=== PATIENT | female | born 1945 | race Caucasian/White ===

== ENCOUNTER 2022-08-06 22:16 | Emergency (ER) | payer MEDICARE, MEDICAID, SELFPAY ==
[2022-08-06 22:19] VITALS: BP 101/57; PULSE 62; RESP 16; TEMP 37; O2SAT 100; BMI 22.8
[2022-08-06 22:26] VITALS: BP 101/57; PULSE 62; O2SAT 100
--- NOTE | 2022-08-06 22:28 | XRR_ITS ---
PROCEDURE INFORMATION: Exam: XR Chest Exam date and time: 08/06/2022 10:35 PM Age: 76 years old Clinical indication: Other: Syncope TECHNIQUE: Imaging protocol: Radiologic exam of the chest. Views: 1 view. COMPARISON: No relevant prior studies available. FINDINGS: Lungs: The lungs are hypoinflated. There is mild bibasilar atelectasis versus infiltrates present. Pleural spaces: Unremarkable. No pleural effusion. No pneumothorax. Heart/Mediastinum: Unremarkable. No cardiomegaly. Bones/joints: Unremarkable. XR/XR chest 1V portable [id number] IMPRESSION: Hypoinflation with mild bibasilar atelectasis versus infiltrates. Correlate for infection.
--- NOTE | 2022-08-06 22:29 | ECG_ITS ---
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 Measurements Intervals [place] Rate: 58 P: 80 HI: 153 QRS: 19 QRSD: 90 T: 31 QT: 444 QTc: 437 Interpretive Statements SINUS BRADYCARDIA No previous ECG available for comparison Electronically Signed On 08-07-2022 7:08:28 CDT by Meg Ramirez M.D. [email or web address]/store/OM/[id number]
--- NOTE | 2022-08-06 22:30 | ED_ITS ---
HPI - Syncope General: Chief Complaint: Syncope Stated Complaint: syncope Time Seen by Provider: 08/06/22 22:18 Source: family and EMS Mode of arrival: EMS Limitations: altered mental status History of Present Illness: 76-year-old female who just moved in with her family from [place] due to dementia she does have severe dementia no history was really available from her. Per family member in the room states that they were barbecuing and she turned around and patient was gurgling and she tried to wake her and would not wake her up states she did 1-2 chest compressions and then she woke up immediately patient is currently awake and at her baseline she has no complaints at this time. Review of Systems General: Reports: ROS unobtainable due to mental status PFSH ED 2 PFSH: Medical History (Updated 08/07/22 @ 00:51 by Liza Gibson MD) Dementia Social History (Updated 08/06/22 @ 22:30 by Liza Gibson MD) Substance/Drug Use: unknown Physical Exam Const: COMMON NORMALS: alert; negative for patient oriented x3 ORIENTATION/CONSCIOUSNESS: Yes oriented to person HENMT: COMMON NORMALS: normocephalic and atraumatic HEAD & SCALP: normocephalic and atraumatic Eye: COMMON NORMALS: Equal, round and reactive pupils present and EOMs intact bilaterally PUPIL: Yes Equal, round and reactive pupils present Neck/C-Spine: COMMON NORMALS: full ROM and supple Chest: COMMONS NORMALS: normal inspection of the chest and normal palpation of entire chest wall Resp: COMMON NORMALS: normal respiratory effort, No retractions, No use of accessory muscles and clear to auscultation bilaterally AUSCULTATION: clear to auscultation bilaterally Cardio: COMMON NORMALS: regular rate, regular rhythm and No murmurs present (Cardio) RATE: regular rate RHYTHM: regular rhythm GI: COMMON NORMALS: Normal to inspection, nondistended, normoactive bowel sounds present, Soft to palpation, non-tender and no masses PALPATION: Yes Soft to palpation Extremity: COMMON NORMALS: normal to inspection and full ROM Neuro: COMMON NORMALS: moves all extremities and no focal motor deficits; negative for patient oriented x3 SENSORIUM/ORIENTATION: Yes alert and Yes oriented to person Psych: COMMON NORMALS: mental status grossly normal, Normal thought process present and cooperative THOUGHT PROCESS: Normal thought process present Skin: COMMON NORMALS: no rashes or lesions noted and no wounds GENERAL SKIN EXAM: no rashes or lesions noted Course Vital Signs: Vital signs: Vital Signs Temperature 98.6 F 08/06/22 22:19 Pulse Rate 61 08/06/22 23:01 Respiratory Rate 16 08/06/22 22:19 Blood Pressure 111/58 08/06/22 23:01 Pulse Oximetry 93 08/06/22 23:01 Oxygen Delivery Me thod Room Air 08/06/22 23:01 MDM - Syncope Medical Decision Making Patient presents here with a likely syncopal event she has no signs of any arrhythmias no signs of actually losing her pulses or stroke she is awake and alert heart rates been normal vitals here been normal blood work here is all been normal along with normal head CT she is stable for discharge she is to follow-up with PCP and return if worsening she understands agrees to plan. Medical Records I reviewed the patient's medical records. Lab Data I reviewed the patient's lab results. 08/06/22 21:27 08/06/22 21:27 Radiology Impressions Chest X-Ray 08/06/22 22:28 IMPRESSION: Hypoinflation with mild bibasilar atelectasis versus infiltrates. Correlate for infection. Head CT 08/06/22 22:42 IMPRESSION: No acute intracranial abnormality. Laboratory Results WBC 9.1 10^3/uL (4.0-10.0) 08/06/22 21: RBC 4.40 10^6/uL (4.1-5.3) 08/06/22: Hgb 13.1 g/dL (11.5-15.3) 08/06/22 21: Hct 41.7 % (37.0-47.0) 08/06/22 21: MCV 94.8 fl (81-99) 08/06/22 21: MCH 29.8 pg (28.0-34.0) 08/06/22 21: MCHC 31.4 g/dL (30.0-36.0) 08/06/22 21: RDW 12.9 % (12.1-15.1) 08/06/22: Plt Count 247 10^3/cmm (130-400) 08/06/22 21: MPV 11.3 fL (7.4-10.4) H 08/06/22 21: Neut % (Auto) 62.7 % 08/06/22 21: Lymph % (Auto) 28.1 % 08/06/22 21: [place] % (Auto) 8.0 % 08/06/22 21: Eos % (Auto) 0.5 % 08/06/22 21: Baso % (Auto) 0.4 % 08/06/22 21: Neut # (Auto) 5.72 10^3/uL (1.8-7.7) 08/06/22: Lymph # (Auto) 2.6 10^3/uL (0.8-4.8) 08/06/22: [place] # (Auto) 0.7 10^3/uL (0.2-0.9) 08/06/22: Eos # (Auto) 0.1 10^3/uL (0.0-0.8) 08/06/22: Baso # (Auto) 0.0 10^3/uL (0.0-0.1) 08/06/22: Nucleated RBC % (auto) 0 % 08/06/22: Nucleated RBCs # 0.0 /100WBC 08/06/22: Sodium 137 mmol/L (136-145) 08/06/22 21: Potassium 3.9 mmol/L (3.5-5.1) 08/06/22: Chloride 103 mmol/L (98-107) 08/06/22: Carbon Dioxide 23 mmol/L (22-29) 08/06/22: Anion Gap 14.9 (5-19) 08/06/22: BUN 16 mg/dL (8-23) 08/06/22: Creatinine 1.7 mg/dL (0.5-0.9) H 08/06/22: GFR Calculation Not Reportable 08/06/22: Glucose 101 mg/dL (65-115) 08/06/22: Calculated Osmolality 285 mOsm/kg (285-295) 08/06/22: Calcium 9.2 mg/dL (8.5-10.5) 05/01/23 21:27 Total Bilirubin 0.3 mg/dL (0.15-1.2) 08/06/22 21:27 AST 13 U/L (0-32) 08/06/22 21:27 ALT 7 U/L (0-33) 08/06/22 21:27 Alkaline Phosphatase 124 U/L (35-105) H 08/06/22 21:27 Troponin T Baseline 27 ng/L (0-10) H 08/06/22 21:27 Troponin T 120 Minute 26.96 ng/L (0-10) H 08/07/22 00:13 Delta Troponin T -0.04 ABS# (0-10) L 08/07/22 00:13 Total Protein 6.2 g/dL (6.6-8.7) L 08/06/22 21:27 Albumin 3.8 g/dL (3.5-5.2) 08/06/22 21:27 Globulin 2.4 g/dL (1.3-4.6) 08/06/22 21:27 EKG Data EKG 1: I personally reviewed and interpreted this EKG as follows: EKG interpretation date: 08/06/22 EKG interpretation time: 22:29 Interpretation: sinus bassam hr [address] or t wave abnormalities qrs 90 qtc 440 Discharge Plan Discharge Patient Disposition: Home Clinical Impression: Syncope Discharge Orders: Discharge ED (Routine); Ordered 08/07/22 Ordered By: Liza Gibson Discharge Diet: Advance as tolerated Discharge Activity: Resume usual activity Patient Instructions: Syncope (ED) Coding Level of Care Code ED Print Project Manager for Marge Bhardwaj
--- NOTE | 2022-08-06 22:42 | CTR_ITS ---
PROCEDURE INFORMATION: Exam: CT Head Without Contrast Exam date and time: 08/06/2022 10:50 PM Age: 76 years old Clinical indication: Altered mental status/memory loss; Confusion or disorientation; Additional info: AMS TECHNIQUE: Imaging protocol: Computed tomography of the head without contrast. Radiation optimization: All CT scans at this facility use at least one of these dose optimization techniques: automated exposure control; mA and/or kV adjustment per patient size (includes targeted exams where dose is matched to clinical indication); or iterative reconstruction. REPORTING DATA: Count of CT and Cardiac NM exams in prior 12 months: This patient has received 0 known CTs and 0 known cardiac nuclear medicine studies in the 12 months prior to the current study. COMPARISON: No relevant prior studies available. RADIATION DOSE METRICS: Total DLP (mGy-cm): 1091.08 FINDINGS: Brain: No acute infarct. No hemorrhage. Involutional changes of the brain, commensurate with age. No mass effect. Cerebral ventricles: There is mild ex vacuo prominence of the ventricles proportionate to the overall degree of cerebral volume loss. Paranasal sinuses: Visualized sinuses are unremarkable. No fluid levels. Mastoid air cells: Visualized mastoid air cells are well aerated. Bones/joints: Unremarkable. No acute fracture. Soft tissues: Unremarkable. CT/CT head wo con* [id number] IMPRESSION: No acute intracranial abnormality.
[2022-08-06 22:49] LABS: Hematocrit 41.7 % (37.0-47.0); Hemoglobin 13.1 g/dL (11.5-15.3); Mean Corpuscular HGB Conc 31.4 g/dL (30.0-36.0); Mean Corpuscular Hemoglobin 29.8 pg (28.0-34.0); Mean Corpuscular Volume 94.8 fl (81-99); Red Cell Distribution Width 12.9 % (12.1-15.1); White Blood Count 9.1 10^3/uL (4.0-10.0)
[2022-08-06 22:50] LABS: Lymphocytes % 28.1 %; Mean Platelet Volume 11.3 fL (7.4-10.4); Platelet Count 247 10^3/cmm (130-400)
[2022-08-06 22:51] LABS: Basophils % 0.4 %; Eosinophils # 0.1 10^3/uL (0.0-0.8); Eosinophils % 0.5 %; Lymphocytes # 2.6 10^3/uL (0.8-4.8); Monocytes # 0.7 10^3/uL (0.2-0.9); Neutrophils # 5.72 10^3/uL (1.8-7.7); Neutrophils % 62.7 %
[2022-08-06 22:52] LABS: Nucleated Red Blood Cells % 0 %
[2022-08-06 22:58] LABS: Alanine Aminotransferase 7 U/L (0-33); Albumin Level 3.8 g/dL (3.5-5.2); Alkaline Phosphatase 124 U/L (35-105); Anion Gap 14.9 (5-19); Aspartate Amino Transferase 13 U/L (0-32); Blood Urea Nitrogen 16 mg/dL (8-23); Calcium 9.2 mg/dL (8.5-10.5); Carbon Dioxide 23 mmol/L (22-29); Chloride 103 mmol/L (98-107); Globulin 2.4 g/dL (1.3-4.6); Glucose 101 mg/dL (65-115); Osmolality Calculated 285 mOsm/kg (285-295); Potassium 3.9 mmol/L (3.5-5.1); Sodium 137 mmol/L (136-145); Total Bilirubin 0.3 mg/dL (0.15-1.2); Total Protein 6.2 g/dL (6.6-8.7)
[2022-08-06 23:01] VITALS: BP 111/58; PULSE 61; O2SAT 93
[2022-08-06 23:13] LABS: Troponin(5th) Baseline 27 ng/L (0-10)
--- NOTE | 2022-08-07 00:29 | ECG_ITS ---
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 Measurements Intervals [place] Rate: 61 P: 78 ID: [id number] QRS: 22 QRSD: 90 T: 33 QT: 442 QTc: 446 Interpretive Statements SINUS RHYTHM Compared to ECG 08/06/2022 22:29:54 Sinus bradycardia no longer present Electronically Signed On 08-08-2022 0:28:16 CDT by Meg Ramirez M.D. [email or web address] Partnersg[facility] veterans health care systemMeaningotrumbull regional medical centerOrganic Society/store/OM/[id number]
[2022-08-07 00:44] LABS: Troponin 5 2HR 26.96 ng/L (0-10)
[2022-08-07 00:46] LABS: Troponin 5 2HR Delta -0.04 ABS# (0-10)
[2022-08-07 01:27] VITALS: BP 102/56; PULSE 60; RESP 15; O2SAT 99
--- NOTE | 2022-08-09 11:55 | DCPLANNER ---
applications manager called patient due to no primary care physician - spoke with patients son. applications manager was told that patient just moved to the area, patient needs to get established with a provider. applications manager offered to get patient established, patients son stated that they would call and get something scheduled. applications manager gave patients family the phone number to the [facility].
== END 2022-08-07 01:22 | disposition home or self-care (01) ==
PROVIDERS: Emergency Provider Emergency Medicine
DX: R55 Syncope and collapse (principal); F03.90 Unspecified dementia, unspecified severity, without behavioral disturbance, psychotic disturbance, mood disturbance, and anxiety
CPT/HCPCS: 36415; 70450; 71045; 80053; 84484; 85025; 93005; 99285

== ENCOUNTER → 2022-12-18 10:50 | Outpatient (BNVA) | payer MEDICARE, MEDICAID, SELFPAY | PROVIDERS: Visit Provider Internal Medicine Cardiovascular Disease | DX: R55 Syncope and collapse (principal); I25.10 Atherosclerotic heart disease of native coronary artery without angina pectoris; I73.9 Peripheral vascular disease, unspecified; G40.909 Epilepsy, unspecified, not intractable, without status epilepticus; R01.1 Cardiac murmur, unspecified; F03.90 Unspecified dementia, unspecified severity, without behavioral disturbance, psychotic disturbance, mood disturbance, and anxiety | CPT/HCPCS: 99204 ==

== ENCOUNTER → 2023-01-17 09:11 | Outpatient (BNVA) | payer MEDICARE, MEDICAID, SELFPAY | PROVIDERS: Referring Provider Nurse Practitioner Family; Visit Provider Psychiatry & Neurology Neurology | DX: F03.90 Unspecified dementia, unspecified severity, without behavioral disturbance, psychotic disturbance, mood disturbance, and anxiety (principal); F80.2 Mixed receptive-expressive language disorder; R47.02 Dysphasia; I63.9 Cerebral infarction, unspecified; I25.10 Atherosclerotic heart disease of native coronary artery without angina pectoris; E55.9 Vitamin D deficiency, unspecified | CPT/HCPCS: 81241; 82607; 82652; 82746; 83090; 83735; 83921; 84439; 84443; 84481; 85210; 85300; 85303; 85305; 85613; 85730; 86146; 86147; 99203 ==

== ENCOUNTER 2023-02-08 15:00 | Outpatient (CLI) | payer MEDICARE, MEDICAID, SELFPAY ==
--- NOTE | 2023-02-08 15:45 | USR_ITS ---
PROCEDURE INFORMATION: Exam: US Duplex Bilateral Extracranial Arteries; Complete; Carotid Arteries Exam date and time: 02/08/2023 4:52 PM Age: 77 years old Clinical indication: Speech disturbance; Dysphasia; Additional info: R47.02 - dysphasia TECHNIQUE: Imaging protocol: Real-time duplex ultrasound scan of the bilateral extracranial arteries combining childress scale, color Doppler and spectral waveform analysis with image documentation. Complete exam. Exam focused on the carotid arteries. COMPARISON: MR head wo con* [id number] 02/08/2023 3:58 PM FINDINGS: Right common carotid artery: . 67.0 Cm/s Right internal carotid artery: 48 Cm/s Right ICA/CCA ratio: Within normal limits. Right external carotid artery: No stenosis in the origin. Right vertebral artery: Vertebral arteries: Antegrade Left common carotid artery: 57 Cm/s Left internal carotid artery: 54 Cm/s Left ICA/CCA ratio: Within normal limits. Left external carotid artery: No stenosis in the origin. Left vertebral artery: Unremarkable. Antegrade flow. Other findings: Velocity ratios of approximally 1. US/CV carotid duplex BI* [id number] IMPRESSION: No hemodynamically significant narrowing. Minimal plaque within the carotid bulb. REFERENCES: SRU CRITERIA. The degree of internal carotid artery stenosis is based on criteria defined by the Society of Radiologists in Ultrasound (SRU). Normal is no stenosis. Mild is less than 50% stenosis. Moderate is 50-69% stenosis. Severe is greater than 69% stenosis to near occlusion. Near occlusion is a markedly narrowed lumen. Total occlusion is no detectable patent lumen.
--- NOTE | 2023-02-08 16:45 | MR_ITS ---
WS: [id number] MRI BRAIN WITHOUT CONTRAST HISTORY: R47.02 - Dysphasia COMPARISON: None available. TECHNIQUE: Diffusion imaging, multiplanar T1, T2 and FLAIR imaging obtained. This study is significantly compromised by motion artifact on all sequences. No large diffusion abnormality is identified. There is significant bilateral atrophy. There is increased T2 signal surrounding the ventricles. The exact extent of the signal abnormalities not determined due to the significant motion. Abnormal signa l extends into the cortex of the posterior RIGHT parietal lobe. No large areas of hemorrhage. Ventricles and extra-axial spaces are prominent. No inferior displacement of cerebellar tonsils. There does appear to be significant atrophy of the hippocampal formations but this may be exacerbated by the motion artifact. Paranasal sinuses: Clear. Mastoid air cells: Unremarkable as visualized. Calvarium and scalp: Unremarkable as visualized. IMPRESSION: 1. Quality of this examination is significantly degraded by motion artifact. 2. There is at least moderate atrophy and hippocampal atrophy. The extent of the white matter diseas e in the atrophy and small vessel disease is difficult to determine due to the motion artifact.
== END 2023-02-08 15:01 | disposition home or self-care (01) ==
LOC: RAD 15:01
PROVIDERS: Visit Provider Psychiatry & Neurology Neurology
DX: R47.02 Dysphasia (principal)
CPT/HCPCS: 70551; 93880

== ENCOUNTER 2023-02-22 10:36 | Oncology outpatient (recurring) (ONCR) | payer MEDICARE, MEDICAID, SELFPAY ==
[2023-02-22 11:55] LABS: Basophils # 0.1 10^3/uL (0.0-0.1); Basophils % 0.8 %; Eosinophils % 0.1 %; Hematocrit 40.7 % (36-47); Lymphocytes # 1.7 10^3/uL (0.8-4.8); Lymphocytes % 19.3 %; Mean Corpuscular HGB Conc 32.7 g/dL (30-55); Mean Corpuscular Hemoglobin 30.9 pg (27-33); Mean Corpuscular Volume 94.7 fl (85-98); Monocytes # 0.6 10^3/uL (0.2-0.9); Neutrophils # 6.55 10^3/uL (1.8-7.7); Neutrophils % 72.6 %; Nucleated Red Blood Cells % 0 %; Platelet Count 234 10^3/cmm (157-399); Red Cell Distribution Width 12.8 % (12.1-15.1); White Blood Count 9.02 10^3/uL (3.29-11.43)
[2023-02-22 12:17] LABS: Alanine Aminotransferase 7 U/L (0-33); Albumin Level 4.1 g/dL (3.5-5.2); Alkaline Phosphatase 113 U/L (35-105); Anion Gap 12.4 (5-19); Aspartate Amino Transferase 10 U/L (0-32); Blood Urea Nitrogen 24 mg/dL (8-23); Calcium 8.8 mg/dL (8.5-10.5); Carbon Dioxide 22 mmol/L (22-29); Chloride 108 mmol/L (98-107); Globulin 2.1 g/dL (1.3-4.6); Glucose 101 mg/dL (65-115); Osmolality Calculated 290 mOsm/kg (285-295); Potassium 4.4 mmol/L (3.5-5.1); Sodium 138 mmol/L (136-145); Total Bilirubin 0.6 mg/dL (0.15-1.2); Total Protein 6.2 g/dL (6.6-8.7)
[2023-02-22 12:31] LABS: Vitamin B12 300 pg/mL (232-1245)
[2023-02-25 23:10] LABS: Methylmalonic Acid 778 nmol/L (87-318)
== END 2023-03-07 23:59 | disposition home or self-care (01) ==
PROVIDERS: Visit Provider Internal Medicine
DX: E53.8 Deficiency of other specified B group vitamins (principal); F80.2 Mixed receptive-expressive language disorder; F03.90 Unspecified dementia, unspecified severity, without behavioral disturbance, psychotic disturbance, mood disturbance, and anxiety; Z79.899 Other long term (current) drug therapy
CPT/HCPCS: 36415; 80053; 82607; 82746; 83921; 85025; 99203

== ENCOUNTER → 2023-03-26 14:26 | Outpatient (BNVA) | payer MEDICARE, MEDICAID, SELFPAY | PROVIDERS: Visit Provider Psychiatry & Neurology Neurology | DX: F80.2 Mixed receptive-expressive language disorder (principal); R55 Syncope and collapse; E53.8 Deficiency of other specified B group vitamins | CPT/HCPCS: 99212 ==

== ENCOUNTER 2023-03-27 08:15 | Emergency (ER) | payer MEDICARE, MEDICAID, SELFPAY ==
[2023-03-27 08:16] VITALS: BP 91/59; PULSE 62; RESP 16; TEMP 36.6; O2SAT 97
--- NOTE | 2023-03-27 08:20 | XRR_ITS ---
PROCEDURE INFORMATION: Exam: XR Chest Exam date and time: 03/27/2023 8:27 AM Age: 77 years old Clinical indication: Cough and dyspnea; Patient HX: Syncope; Additional info: Dyspnea/cough TECHNIQUE: Imaging protocol: Radiologic exam of the chest. Views: 1 view. COMPARISON: CR XR chest 1V portable [id number] 08/06/2022 10:35 PM FINDINGS: Lungs: There is minimal scarring and/or atelectasis in the lung bases. There are no definite infiltrates. Pleural spaces: Unremarkable. No pleural effusion. No pneumothorax. Heart/Mediastinum: The heart size is within normal limits. Vasculature: There are atherosclerotic changes in the aorta. Bones/joints: There are degenerative changes in the spine and shoulders XR/XR chest 1V portable [id number] IMPRESSION: Mild atelectasis or scarring. Negative for acute infiltrate.
--- NOTE | 2023-03-27 08:21 | W.ED.SYNCOPE ---
HPI - Syncope General: Chief Complaint: Syncope Stated Complaint: Syncope Time Seen by Provider: 03/27/23 08:20 Source: family and EMS Mode of arrival: EMS History of Present Illness: 77-year-old female presents emergency room via EMS from home. She was accompanied by family member who had gotten out of bed to go to the restroom while she was on the way to the restroom she collapsed and was unresponsive briefly. She had a similar episode in December of this year and was seen in the emergency room. She has severe dementia at this point she has had syncopal episodes in the past she was Seen in the emergency room earlier this year after syncopal episode a workup including seeing cardiology 48-hour Holter was negative they did recommend a echocardiogram which has not been done at this point she does have a grade 2 systolic murmur.. Since last ER visit with syncope she has had evaluations by neurology and cardiology. Patient is a significant receptive aphasia. Family did report a fever yesterday. She is afebrile at time presentation here. Prodromal symptoms: none Witnessed: Yes - by Bystander Context: standing up Injuries sustained associated with event: none Associated symptoms: Reports fever(s) Treatments prior to arrival: other (Aspirin) Review of Systems Const: Reports: fever(s) PFS ED PFSH: Medical History Arrhythmia Syncope Wernicke's receptive aphasia Peripheral arterial disease Atherosclerosis of coronary artery of [place] heart without angina pectoris B12 deficiency Dementia Surgical History Hx of hysterectomy Hx of carpal tunnel repair Family History Mother Alzheimer disease Diabetes Brother No problems noted. Social History Smoking and tobacco/nicotine status: never used tobacco/nicotine Alcohol intake: never Substance/Drug Use: unknown Physical Exam Const: ORIENTATION/CONSCIOUSNESS: Yes awake HENMT: COMMON NORMALS: normocephalic and atraumatic HEAD & SCALP: normocephalic and atraumatic Resp: COMMON NORMALS: normal respiratory effort, No retractions, No use of accessory muscles and clear to auscultation bilaterally AUSCULTATION: clear to auscultation bilaterally Cardio: COMMON NORMALS: regular rate, regular rhythm and No murmurs present (Cardio) RATE: regular rate RHYTHM: regular rhythm GI: COMMON NORMALS: Soft to palpation and No hepatosplenomegaly present AUSCULTATION: Yes normoactive bowel sounds PALPATION: Yes Soft to palpation, No Tenderness to palpation present (GI), No Guarding due to palpation present (GI) and Yes No hepatosplenomegaly present Extremity: COMMON NORMALS: normal to inspection, capillary refill normal, no clubbing, cyanosis or edema, no calf tenderness and no pedal edema Skin: COMMON NORMALS: no rashes or lesions noted GENERAL SKIN EXAM: no rashes or lesions noted Course Vital Signs: Vital signs: Vital Signs Temperature 97.9 F 03/27/23 08:16 Pulse Rate 59 L 03/27/23 11:15 Respiratory Rate 17 03/27/23 11:15 Blood Pressure 93/47 03/27/23 11:15 Pulse Oximetry 99 03/27/23 11:15 Oxygen Delivery Me thod Room Air 03/27/23 10:57 MDM - Syncope Medical Decision Making The family member description I think she had a syncopal episode with orthostatic hypotension this morning after standing up too fast that it did not sound as if she had a seizure. She had episodes like this before the only part of the workup she has not completed the echocardiogram we discussed whether or not to pursue that. Does have a heart murmur however they are not sure that they would pursue any findings. She may benefit from starting on midodrine. She is not currently on any antihypertensives. She does have a mild cystitis we will start her on Cipro 250 twice daily until culture is back. Will discharge patient home. Encourage fluids she had a little bit of elevation of her baseline creatinine to 2 from 1.2. Follow-up with her primary care doctor. Medical Records I reviewed the patient's medical records. Lab Data I reviewed the patient's lab results. 03/27/23 07:15 03/27/23 07:15 Radiology Impressions Chest X-Ray 03/27/23 08:20 IMPRESSION: Mild atelectasis or scarring. Negative for acute infiltrate. Laboratory Results WBC 7.78 10^3/uL (3.29-11.43) 03/27/23 07:15 RBC 4.29 10^6/uL (3.85-5.65) 03/27/23 07:15 Hgb 13.10 g/dL (11.27-16.99) 03/27/23 07:15 Hct 40.2 % (36-47) 03/27/23 07:15 MCV 93.7 fl (85-98) 03/27/23 07:15 MCH 30.5 pg (27-33) 03/27/23 07:15 MCHC 32.6 g/dL (30-55) 03/27/23 07:15 RDW 12.9 % (12.1-15.1) 03/27/23 07:15 Plt Count 193 10^3/cmm (157-399) 03/27/23 07:15 MPV 11.2 fL (7.4-10.4) H 03/27/23 07:15 Neut % (Auto) 52.0 % 03/27/23 07:15 Lymph % (Auto) 25.4 % 03/27/23 07:15 [place] % (Auto) 21.6 % 03/27/23 07:15 Eos % (Auto) 0.1 % 03/27/23 07:15 Baso % (Auto) 0.5 % 03/27/23 07:15 Neut # (Auto) 4.04 10^3/uL (1.8-7.7) 03/27/23 07:15 Lymph # (Auto) 2.0 10^3/uL (0.8-4.8) 03/27/23 07:15 [place] # (Auto) 1.7 10^3/uL (0.2-0.9) H 03/27/23 07:15 Eos # (Auto) 0.0 10^3/uL (0.0-0.8) 03/27/23 07:15 Baso # (Auto) 0.0 10^3/uL (0.0-0.1) 03/27/23 07:15 Nucleated RBC % (auto) 0 % 03/27/23 07:15 Nucleated RBCs # 0.0 /100WBC 03/27/23 07:15 Sodium 135 mmol/L (136-145) L 03/27/23 07:15 Potassium 3.5 mmol/L (3.5-5.1) 03/27/23 07:15 Chloride 103 mmol/L (98-107) 03/27/23 07:15 Carbon Dioxide 21 mmol/L (22-29) L 03/27/23 07:15 Anion Gap 14.5 (5-19) 03/27/23 07:15 BUN 22 mg/dL (8-23) 03/27/23 07:15 Creatinine 2.0 mg/dL (0.5-0.9) H 03/27/23 07:15 GFR Calculation Not Reportable 03/27/23 07:15 Glucose 129 mg/dL (65-115) H 03/27/23 07:15 Calculated Osmolality 285 mOsm/kg (285-295) 03/27/23 07:15 Calcium 8.7 mg/dL (8.5-10.5) 03/27/23 07:15 Total Bilirubin 0.4 mg/dL (0.15-1.2) 03/27/23 07:15 AST 16 U/L (0-32) 03/27/23 07:15 ALT 11 U/L (0-33) 03/27/23 07:15 Alkaline Phosphatase 117 U/L (35-105) H 03/27/23 07:15 Troponin T Baseline 42 ng/L (0-10) H 03/27/23 07:15 Troponin T 120 Minute 40.87 ng/L (0-10) H 03/27/23 09:13 Delta Troponin T -1.13 ABS# (0-10) L 03/27/23 09:13 Total Protein 5.9 g/dL (6.6-8.7) L 03/27/23 07:15 Albumin 3.7 g/dL (3.5-5.2) 03/27/23 07:15 Globulin 2.2 g/dL (1.3-4.6) 03/27/23 07:15 Urine Color Yellow (Yellow) 03/27/23 08:47 Urine Appearance Hazy (CLEAR) A 03/27/23 08:47 Urine pH 6 (5-7) 03/27/23 08:47 Ur Specific Balsam 1.020 (1.005-1.030) 03/27/23 08:47 Urine Protein 1+ (Negative) H 03/27/23 08:47 Urine Glucose (UA) 2+ (Normal) H 03/27/23 08:47 Urine Ketones 1+ (Negative) H 03/27/23 08:47 Urine Blood 3+ (Negative) H 03/27/23 08:47 Urine Nitrate Negative (Negative) 03/27/23 08:47 Urine Bilirubin Neg (Negative) 03/27/23 08:47 Urine Urobilinogen Norm mg/dL (Negative) 03/27/23 08:47 Ur Leukocyte Esterase Negative (Negative) 03/27/23 08:47 Urine RBC 0-4 /hpf (0-2) H 03/27/23 08:47 Urine WBC 10-15 /hpf (0-5) H 03/27/23 08:47 Ur Squamous Epith Cells 5-10 /hpf (0-5) H 03/27/23 08:47 Amorphous Sediment 2+ /hpf 03/27/23 08:47 Urine Bacteria 2+ /hpf (NONE) H 03/27/23 08:47 All radiology interpretation(s) finalized by discharge Discharge Plan Discharge Patient Disposition: Home Clinical Impression: Syncope due to orthostatic hypotension, Cystitis Condition: Stable Prescriptions: New Cipro 250 mg/5 mL suspension,microcapsule recon 250 mg PO BID 7 Days Qty: 70 0RF No Action ascorbic acid (vitamin C) 250 mg tablet 250 mg PO DAILY cholecalciferol (vitamin D3) 10 mcg (400 unit) capsule 10 mcg PO DAILY aspirin 81 mg tablet,delayed release (DR/EC) 81 mg PO DAILY rosuvastatin [Crestor] 20 mg tablet 20 mg PO DAILY Qty: 90 5RF Children's Cold and Cough DM 1-2.5-5 mg/5 mL Solution 10 ml PO Q4H PRN (Reason: cold and fever) Discharge Orders: Discharge ED (Routine); Ordered 03/27/23 Ordered By: Mark Burton Discharge Diet: Usual diet Discharge Activity: Increase activity as tolerated Patient Instructions: Ciprofloxacin (By mouth) (Cipro), Urinary Tract Infection in Women (ED), Opioid Safety, Pain Management Activity Restrictions/Additional Instructions: Thank you for choosing [facility] for your healthcare needs today. Please realize this is an emergency room and that we are providing you with a medical screening exam and this may not be complete and all inclusive of all the testing and or work up that you may need to determine your ailment or severity of your illness. It is very important that you follow up as instructed or that you return to the Emergency Department should you have concerns or if your condition changes or worsens in any way. Follow-up with your primary care doctor or regional flatbed truck driver. Consider having the echocardiogram done after discussion with them. There are medications that can be given to raise her blood pressure regional flatbed truck driver could consider adding these. (Midodrine) Coding Level of Care Code ED Transit Mixer Operator for Marge Bhardwaj
[2023-03-27 08:28] LABS: Basophils % 0.5 %; Eosinophils % 0.1 %; Hematocrit 40.2 % (36-47); Lymphocytes % 25.4 %; Mean Corpuscular HGB Conc 32.6 g/dL (30-55); Mean Corpuscular Hemoglobin 30.5 pg (27-33); Mean Corpuscular Volume 93.7 fl (85-98); Mean Platelet Volume 11.2 fL (7.4-10.4); Monocytes # 1.7 10^3/uL (0.2-0.9); Monocytes % 21.6 %; Neutrophils # 4.04 10^3/uL (1.8-7.7); Nucleated Red Blood Cells % 0 %; Platelet Count 193 10^3/cmm (157-399); Red Blood Count 4.29 10^6/uL (3.85-5.65); Red Cell Distribution Width 12.9 % (12.1-15.1); White Blood Count 7.78 10^3/uL (3.29-11.43)
--- NOTE | 2023-03-27 08:33 | ECG_ITS ---
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 Measurements Intervals [place] Rate: 61 P: 64 [place]: 149 QRS: 32 QRSD: 86 T: 41 QT: 407 QTc: 411 Interpretive Statements SINUS RHYTHM Compared to ECG 08/07/2022 00:17:32 No significant changes Electronically Signed On 03-27-2023 11:05:19 SAP BI DEVELOPER by Mary Cano M.D. [email or web address] [email or web address]/store/OM/[id number]
[2023-03-27 08:45] VITALS: BP 91/59; PULSE 58; RESP 12; O2SAT 98
[2023-03-27 08:51] LABS: Alanine Aminotransferase 11 U/L (0-33); Albumin Level 3.7 g/dL (3.5-5.2); Alkaline Phosphatase 117 U/L (35-105); Anion Gap 14.5 (5-19); Aspartate Amino Transferase 16 U/L (0-32); Blood Urea Nitrogen 22 mg/dL (8-23); Calcium 8.7 mg/dL (8.5-10.5); Carbon Dioxide 21 mmol/L (22-29); Chloride 103 mmol/L (98-107); Globulin 2.2 g/dL (1.3-4.6); Glucose 129 mg/dL (65-115); Osmolality Calculated 285 mOsm/kg (285-295); Potassium 3.5 mmol/L (3.5-5.1); Sodium 135 mmol/L (136-145); Total Bilirubin 0.4 mg/dL (0.15-1.2); Total Protein 5.9 g/dL (6.6-8.7); Troponin(5th) Baseline 42 ng/L (0-10)
[2023-03-27] MEDS: sodium chloride 0.9% 1,000 ML 999 ML IV (08:55)
[2023-03-27 09:31] LABS: Add Urine Culture? Yes; Add Urine Microscopic? YES; Amorphous Sediment Urine 2+ /hpf; Bacteria Urine 2+ /hpf; Bilirubin Urine Neg (Negative); Blood Urine 3+ (Negative); Glucose Urine UA 2+ (Normal); Ketones Urine 1+ (Negative); Leukocyte Esterase Urine Negative (Negative); Nitrate Urine Negative (Negative); Protein Urine 1+ (Negative); RBC Urine 0-4 /hpf (0-2); Urine Appearance Hazy (CLEAR); Urine Color Yellow (Yellow); Urobilinogen Urine Norm (Negative); pH Urine 6 (5-7)
[2023-03-27 09:43] LABS: Troponin 5 2HR 40.87 ng/L (0-10)
[2023-03-27 09:45] LABS: Troponin 5 2HR Delta -1.13 ABS# (0-10)
[2023-03-27 10:16] VITALS: BP 91/47; PULSE 58; RESP 16; O2SAT 96
[2023-03-27 10:57] VITALS: BP 93/50; PULSE 59; RESP 17; O2SAT 98
[2023-03-27 11:15] VITALS: BP 93/47; PULSE 59; RESP 17; O2SAT 99
== END 2023-03-27 11:15 | disposition home or self-care (01) ==
PROVIDERS: Emergency Provider Family Medicine
DX: I95.1 Orthostatic hypotension (principal); N30.90 Cystitis, unspecified without hematuria; Z79.82 Long term (current) use of aspirin; I25.10 Atherosclerotic heart disease of native coronary artery without angina pectoris
CPT/HCPCS: 36415; 71045; 80053; 81001; 84484; 85025; 87077; 87086; 87186; 93005; 96360; 99285; J7030

== ENCOUNTER 2023-03-28 14:28 | Observation (INO) | payer MEDICARE, MEDICAID, SELFPAY ==
[2023-03-28] VITALS (73 sets, daily range): BP systolic 101–159; BP diastolic 53–106; PULSE 61–175; RESP 14–37; TEMP 37.1–37.7; O2SAT 78–100; BMI 22.4; BMI 24.0
--- NOTE | 2023-03-28 14:30 | ED_ITS ---
HPI - General Adult 2 General: Chief complaint: Arrhythmia/Palpitations Stated complaint: HYPOTENSION/ AFIB WITH RVR Time Seen by Provider: 03/28/23 14:29 Source: family and EMS Mode of arrival: EMS History of Present Illness: 77-year-old female seen yesterday with a syncopal episode she had multiple syncopal episodes in the past she had a workup including seen cardiology had an Holter monitor she did not get an echocardiogram done she is Do Not Recussitate she previously had a very significant stroke she lives with her family members. She was seen in follow-up clinic today and they said she was hypotensive. On arrival here she is in A-fib with RVR with a rate in the 170s. This was not seen on the previous Holter monitor or when she was here yesterday. EMS had given her 17 mg of Cardizem in route. Report from the nursing staff at the clinic was that she was hypotensive there before. Here she is awake and alert but does not contribute to history. Oxygen saturations normal. Onset (ago): unknown Severity: moderate Review of Systems 2 General: Reports: ROS unobtainable due to medical condition and ROS unobtainable due to mental status PFSH ED 2 PFSH: Medical History Arrhythmia Syncope Wernicke's receptive aphasia Peripheral arterial disease Atherosclerosis of coronary artery of [place] heart without angina pectoris B12 deficiency Dementia Surgical History Hx of hysterectomy Hx of carpal tunnel repair Family History Mother Alzheimer disease Diabetes Brother No problems noted. Social History Smoking and tobacco/nicotine status: never used tobacco/nicotine Alcohol intake: never Substance/Drug Use: unknown Physical Exam 2 Const: ORIENTATION/CONSCIOUSNESS: Yes awake HENMT: COMMON NORMALS: normocephalic and atraumatic HEAD & SCALP: n ormocephalic and atraumatic Resp: COMMON NORMALS: normal respiratory effort, No retractions, No use of accessory muscles and clear to auscultation bilaterally AUSCULTATION: clear to auscultation bilaterally Cardio: COMMON NORMALS: No murmurs present (Cardio) RATE: tachycardic R HYTHM: abnormal rhythm irregularly irregular GI: COMMON NORMALS: Soft to palpation and No hepatosplenomegaly present A USCULTATION: Yes normoactive bowel sounds PALPATION: Yes Soft to palpation, No Tenderness to palpation present (GI), No Guarding due to palpation present (GI) and Yes No hepatosplenomegaly present Extremity: COMMON NORMALS: normal to inspection, capillary refill normal, no clubbing, cyanosis or edema, no calf tenderness and no pedal edema Skin: COMMON NORMALS: no rashes or lesions noted GENERAL SKIN EXAM: no rashes or lesions noted Course 2 Vital Signs: Vital signs: Vital Signs Temperature 98.8 F 03/28/23 14:31 Pulse Rate 124 H 03/28/23 15:15 Respiratory Rate 14 03/28/23 15:15 Blood Pressure 112/77 03/28/23 15:15 Pulse Oximetry 78 L 03/28/23 15:15 Oxygen Delivery Me thod Room Air 03/28/23 14:50 MDM - General Adult Medical Decision Making Patient has A-fib with rapid ventricular sponsor I suspect she has been having intermittent episodes causing hypotension like it she had today which likely resulted in her syncopal episodes. Until now that had not been documented was not caught on her Holter monitor. I discussed and reviewed all this with the family members at the bedside and explained to him what atrial fibrillation was later he came back and talk to me and stated that he had told everyone she had an arrhythmia before he thinks that in 2006 she may have had atrial fibrillation he was not entirely sure. He did state during that time she was on Coumadin but stopped taking it because she was concerned about side effects. At this point she is already converted back to normal sinus rhythm with the amiodarone we are going to titrate the amiodarone off if she remains in normal sinus rhythm we will leave it off of talk to Dr. Townsend and will admit to observation to make adjustments to her medication regimen to further control. The culture of her urine that was done yesterday is preliminary of gram-negative rods she is currently on ciprofloxacin Medical Records I reviewed the patient's medical records. Lab Data I reviewed the patient's lab results. 03/28/23 14:40 03/28/23 14:40 Laboratory Results WBC 7.13 10^3/uL (3.29-11.43) 03/28/23 14:40 RBC 4.14 10^6/uL (3.85-5.65) 03/28/23 14:40 Hgb 12.70 g/dL (11.27-16.99) 03/28/23 14:40 Hct 38.6 % (36-47) 03/28/23 14:40 MCV 93.2 fl (85-98) 03/28/23 14:40 MCH 30.7 pg (27-33) 03/28/23 14:40 MCHC 32.9 g/dL (30-55) 03/28/23 14:40 RDW 12.9 % (12.1-15.1) 03/28/23 14:40 Plt Count 162 10^3/cmm (157-399) 03/28/23 14:40 MPV 11.3 fL (7.4-10.4) H 03/28/23 14:40 Neut % (Auto) 72.9 % 03/28/23 14:40 Lymph % (Auto) 9.8 % 03/28/23 14:40 [place] % (Auto) 16.5 % 03/28/23 14:40 Eos % (Auto) 0.1 % 03/28/23 14:40 Baso % (Auto) 0.3 % 03/28/23 14:40 Neut # (Auto) 5.19 10^3/uL (1.8-7.7) 03/28/23 14:40 Lymph # (Auto) 0.7 10^3/uL (0.8-4.8) L 03/28/23 14:40 [place] # (Auto) 1.2 10^3/uL (0.2-0.9) H 03/28/23 14:40 Eos # (Auto) 0.0 10^3/uL (0.0-0.8) 03/28/23 14:40 Baso # (Auto) 0.0 10^3/uL (0.0-0.1) 03/28/23 14:40 Nucleated RBC % (auto) 0 % 03/28/23 14:40 Nucleated RBCs # 0.0 /100WBC 03/28/23 14:40 Sodium 130 mmol/L (136-145) L 03/28/23 14:40 Potassium 3.2 mmol/L (3.5-5.1) L 03/28/23 14:40 Chloride 100 mmol/L (98-107) 03/28/23 14:40 Carbon Dioxide 20 mmol/L (22-29) L 03/28/23 14:40 Anion Gap 13.2 (5-19) 03/28/23 14:40 BUN 19 mg/dL (8-23) 03/28/23 14:40 Creatinine 1.6 mg/dL (0.5-0.9) H 03/28/23 14:40 GFR Calculation Not Reportable 03/28/23 14:40 Glucose 108 mg/dL (65-115) 03/28/23 14:40 Calculated Osmolality 273 mOsm/kg (285-295) L 03/28/23 14:40 Calcium 7.5 mg/dL (8.5-10.5) L 03/28/23 14:40 Total Bilirubin 0.3 mg/dL (0.15-1.2) 03/28/23 14:40 AST 15 U/L (0-32) 03/28/23 14:40 ALT 10 U/L (0-33) 03/28/23 14:40 Alkaline Phosphatase 126 U/L (35-105) H 03/28/23 14:40 Troponin T Baseline 35 ng/L (0-10) H 03/28/23 14:40 Total Protein 5.6 g/dL (6.6-8.7) L 03/28/23 14:40 Albumin 3.4 g/dL (3.5-5.2) L 03/28/23 14:40 Globulin 2.2 g/dL (1.3-4.6) 03/28/23 14:40 TSH 6.79 uIU/mL (0.27-4.20) H 03/28/23 14:40 Urine Color Straw (Yellow) 03/28/23 15:00 Urine Appearance Hazy (CLEAR) A 03/28/23 15:00 Urine pH 5 (5-7) 03/28/23 15:00 Ur Specific [place] 1.015 (1.005-1.030) 03/28/23 15:00 Urine Protein 1+ (Negative) H 03/28/23 15:00 Urine Glucose (UA) 2+ (Normal) H 03/28/23 15:00 Urine Ketones Negative (Negative) 03/28/23 15:00 Urine Blood 3+ (Negative) H 03/28/23 15:00 Urine Nitrate Negative (Negative) 03/28/23 15:00 Urine Bilirubin Neg (Negative) 03/28/23 15:00 Urine Urobilinogen Norm mg/dL (Negative) 03/28/23 15:00 Ur Leukocyte Esterase Negative (Negative) 03/28/23 15:00 Urine RBC 0-4 /hpf (0-2) H 03/28/23 15:00 Urine WBC 5-10 /hpf (0-5) H 03/28/23 15:00 Ur Squamous Epith Cells 0-4 /hpf (0-5) H 03/28/23 15:00 Amorphous Sediment 1+ /hpf 03/28/23 15:00 Urine Bacteria Trace /hpf (NONE) 03/28/23 15:00 Fine Granular Casts 0-4 /lpf H 03/28/23 15:00 Urine Mucus Trace /hpf 03/28/23 15:00 All radiology interpretation(s) finalized by discharge Discharge Plan Discharge Patient Disposition: Placed in Observation Clinical Impression: Intermittent atrial fibrillation, Cystitis, Syncope, Hypothyroidism Condition: Stable Prescriptions: No Action ascorbic acid (vitamin C) 250 mg tablet 250 mg PO DAILY cholecalciferol (vitamin D3) 10 mcg (400 unit) capsule 10 mcg PO DAILY aspirin 81 mg tablet,delayed release (DR/EC) 81 mg PO DAILY rosuvastatin [Crestor] 20 mg tablet 20 mg PO DAILY Qty: 90 5RF Children's Cold and Cough DM 1-2.5-5 mg/5 mL Solution 10 ml PO Q4H PRN (Reason: cold and fever) ciprofloxacin [Cipro] 250 mg/5 mL suspension,microcapsule recon 250 mg PO BID 7 Days Qty: 70 0RF Patient Instructions: Opioid Safety, Pain Management Coding Level of Care Code ED Rewriter for Marge Bhardwaj
--- NOTE | 2023-03-28 14:30 | ECG_ITS ---
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 Measurements Intervals [place] Rate: 159 P: 0 TN: 0 QRS: 184 QRSD: 81 T: 142 QT: 267 QTc: 434 Interpretive Statements ATRIAL FLUTTER/TACHYCARDIA WITH RAPID VENTRICULAR RESPONSE POSSIBLE RIGHT VENTRICULAR HYPERTROPHY [SOME/ALL OF: PROMINENT R IN V1, LATE TRANSITION, RAD, SHARATH, SSS] INFERIOR MYOCARDIAL INFARCTION , PROBABLY OLD [40+ ms Q WAVE AND/OR ST/T ABNORMALITY IN II/aVF] CRITICAL TEST RESULT Compared to ECG 03/27/2023 08:33:33 Myocardial infarct finding now present Sinus rhythm no longer present Electronically Signed On 03-29-2023 19:16:49 [employer]OMCORN GRADER by Meg Ramirez M.D. [id number]
[2023-03-28 14:48] LABS: Basophils % 0.3 %; Eosinophils % 0.1 %; Hematocrit 38.6 % (36-47); Lymphocytes # 0.7 10^3/uL (0.8-4.8); Lymphocytes % 9.8 %; Mean Corpuscular HGB Conc 32.9 g/dL (30-55); Mean Corpuscular Hemoglobin 30.7 pg (27-33); Mean Corpuscular Volume 93.2 fl (85-98); Mean Platelet Volume 11.3 fL (7.4-10.4); Monocytes # 1.2 10^3/uL (0.2-0.9); Monocytes % 16.5 %; Neutrophils # 5.19 10^3/uL (1.8-7.7); Neutrophils % 72.9 %; Nucleated Red Blood Cells % 0 %; Platelet Count 162 10^3/cmm (157-399); Red Blood Count 4.14 10^6/uL (3.85-5.65); Red Cell Distribution Width 12.9 % (12.1-15.1); White Blood Count 7.13 10^3/uL (3.29-11.43)
[2023-03-28] MEDS: amiodarone 50 mg/mL SDV 3 mL 150 MG IVP (14:54)
[2023-03-28 15:07] LABS: Troponin(5th) Baseline 35 ng/L (0-10)
[2023-03-28 15:16] LABS: Alanine Aminotransferase 10 U/L (0-33); Albumin Level 3.4 g/dL (3.5-5.2); Alkaline Phosphatase 126 U/L (35-105); Anion Gap 13.2 (5-19); Aspartate Amino Transferase 15 U/L (0-32); Blood Urea Nitrogen 19 mg/dL (8-23); Calcium 7.5 mg/dL (8.5-10.5); Carbon Dioxide 20 mmol/L (22-29); Chloride 100 mmol/L (98-107); Globulin 2.2 g/dL (1.3-4.6); Glucose 108 mg/dL (65-115); Osmolality Calculated 273 mOsm/kg (285-295); Potassium 3.2 mmol/L (3.5-5.1); Sodium 130 mmol/L (136-145); Thyroid Stimulating Hormone 6.79 uIU/mL (0.27-4.20); Total Bilirubin 0.3 mg/dL (0.15-1.2); Total Protein 5.6 g/dL (6.6-8.7)
[2023-03-28 15:48] LABS: Glucose Urine UA 2+ (Normal); Ketones Urine Negative (Negative); Protein Urine 1+ (Negative); Specific Gravity, Urine 1.015 (1.005-1.030); Urine Appearance Hazy (CLEAR); Urine Color Straw (Yellow); pH Urine 5 (5-7)
[2023-03-28 15:49] LABS: Add Urine Microscopic? YES; Bilirubin Urine Neg (Negative); Blood Urine 3+ (Negative); Leukocyte Esterase Urine Negative (Negative); Nitrate Urine Negative (Negative); Urobilinogen Urine Norm (Negative)
[2023-03-28 15:53] LABS: Add Urine Culture? No; Amorphous Sediment Urine 1+ /hpf; Bacteria Urine TRACE /hpf; Fine Granular Casts Urine 0-4 /lpf; Mucus Urine TRACE /hpf; RBC Urine 0-4 /hpf (0-2); Squamous Epithelial Cell Urine 0-4 /hpf (0-5)
--- NOTE | 2023-03-28 16:30 | ECG_ITS ---
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 Measurements Intervals [place] Rate: 65 P: 51 ME: 144 QRS: 9 QRSD: 89 T: 39 QT: 380 QTc: 397 Interpretive Statements SINUS RHYTHM Compared to ECG 03/28/2023 14:37:21 Atrial flutter no longer present Myocardial infarct finding no longer present Electronically Signed On 03-29-2023 19:38:15 GREEN WARE CASTER by Meg Ramirez M.D. [id number]
[2023-03-28 17:08] LABS: Troponin 5 2HR 39.28 ng/L (0-10); Troponin 5 2HR Delta 4.28 ABS# (0-10)
--- NOTE | 2023-03-28 17:28 | P.HP_ITS ---
Providers/Chief Complaint 2 Chief Complaint: HYPOTENSION/ AFIB WITH RVR History of Present Illness 77-year lady with history of dementia, aphasia, noncommunicative, requiring supervision and supportive care, normally ambulatory and quite active, walks around at home, has had episodes of syncope including 1 yesterday, on evaluation in ER was found to have suggestion of UTI, at discharge with antibiotic (Cipro) was referred for echocardiogram, but had an additional syncopal episode. On assessment by EMS was found to be in atrial fibrillation with RVR. Received a dose of Cardizem IV to which she did not respond, was started on amiodarone in ER. She is unable to provide history, history obtained from her son and [id number]-tar. It seems that her family members have been having flulike symptoms recently, with some cough, she has also had some cough in the last several days. It appears that she does have history of diagnosis of atrial fibrillation but did not have tachycardia or syncope with it previously. She used to be on anticoagulation a while back, but then was not wanting to take it herself afraid of bleeding, and more recently has not been continued due to risk of falls and bleeding. Takes 81 mg of aspirin. Review of Systems 2 General: Reports: ROS unobtainable due to medical condition and ROS unobtainable due to mental status Medications/Allergies Home Medications Medication Instructions Recorded Confirmed Last Taken Type ascorbic acid (vitamin C) 250 mg 250 mg PO DAILY 02/22/23 03/28/23 Unknown History tablet aspirin 81 mg tablet,delayed 81 mg PO DAILY 02/22/23 03/28/23 03/27/23 History release cholecalciferol (vitamin D3) 10 10 mcg PO DAILY 02/22/23 03/28/23 Unknown History mcg (400 unit) capsule rosuvastatin 20 mg tablet (Crestor) 20 mg PO DAILY #90 tabs 03/26/23 03/28/23 Unknown Rx uciltlyvqsaafmq-xczjqcwgyhnue-FY 1 10 ml PO Q4H PRN cold and fever 03/27/23 03/28/23 03/26/23 History mg-2.5 mg-5 mg/5 mL oral solution ciprofloxacin 250 mg/5 mL oral 250 mg (5 mL) PO BID 7 days #70 mL 03/27/23 03/28/23 03/27/23 Rx suspension (Cipro) Allergies Allergy/AdvReac Type Severity Reaction Status Date / Time Penicillins Allergy Unknown Verified 03/27/23 08:35 PFSH Acute 2 PFSH: Medical History Hx of coronary angiogram Intermittent atrial fibrillation Arrhythmia Syncope Wernicke's receptive aphasia Peripheral arterial disease Atherosclerosis of coronary artery of [place] heart without angina pectoris B12 deficiency Dementia Surgical History Hx of hysterectomy Hx of carpal tunnel repair Family History Mother Alzheimer disease Diabetes Brother No problems noted. Social History Smoking and tobacco/nicotine status: never used tobacco/nicotine Alcohol intake: never Substance/Drug Use: unknown Vitals/I&O/Wt Last Vital Signs Temp 98.8 F 03/28/23 14:31 Pulse 74 03/28/23 16:35 Resp 22 H 03/28/23 16:35 BP 110/55 03/28/23 16:35 Pulse Ox 99 03/28/23 16:35 O2 Del Method Room Air 03/28/23 14:50 03/28/23 03/28/23 03/28/23 06:59 14:59 22:59 Intake Total 38.885 / 38.885 Balance 38.885 / 38.885 Weight last 48 hrs Weight 52.163 kg Physical Exam 2 Narrative: Accompanied by son and [id number] Const: COMMON NORMALS: negative for patient oriented x3 GENERAL APPEARANCE: cooperative ORIENTATION/CONSCIOUSNESS: Yes awake HENMT: COMMON NORMALS: oropharynx normal Neck/C-Spine: COMMON NORMALS: no JVD Resp: COMMON NORMALS: normal respiratory effort and clear to auscultation bilaterally AUSCULTATION: clear to auscultation bilaterally Cardio: COMMON NORMALS: no JVD, regular rhythm, S1 normal heart sound present, S2 normal heart sound present and No murmurs present (Cardio) RHYTHM: regular rhythm HEART SOUNDS: S1 normal heart sound present and S2 normal heart sound present GI: COMMON NORMALS: Normal to inspection, nondistended, normoactive bowel sounds present, Soft to palpation and non-tender PALPATION: Yes Soft to palpation Extremity: COMMON NORMALS: no joint enlargement and no pedal edema Neuro: COMMON NORMALS: moves all extremities; negative for patient oriented x3 SENSORIUM/ORIENTATION: Yes alert Skin: COMMON NORMALS: no rashes or lesions noted GENERAL SKIN EXAM: no rashes or lesions noted Data 03/28/23 14:40 03/28/23 14:40 A&P Assessment and plan (1) Syncope: Recurrent syncopal events, including yesterday and today. Yesterday found to have UTI, started on ciprofloxacin. Was referred for echocardiogram, however, additional syncopal event today. Son states that she otherwise also has been having some cough, which he feels she may have caught after other family members had flulike illness. Will go ahead and assess viral respiratory panel. She was otherwise found to have atrial fibrillation with RVR, with possible cardiogenic syncope, will obtain echocardiogram, complete troponin EKG series. Discussed additional assessment for possible PE as a trigger of syncope, atrial fibrillation. Assess orthostatic vitals. Treat UTI. (2) Paroxysmal atrial fibrillation with RVR: Symptomatic atrial fibrillation with with RVR with syncopal episodes. History had to be obtained from family. Discussed additional assessment for possible PE. Family would like to avoid CT angiogram as she has history of renal disease. Discussed assessing D-dimer, lower extremity ultrasound. She otherwise also would be a poor candidate for anticoagulation both for atrial fibrillation or possible PE. At risk of falls, bleeding. As she was quite symptomatic with atrial fibrillation, currently converted to sinus rhythm, discussed risks and benefits of continuing rhythm control, continuing amiodarone after she was started in ER and so far appears responding well, complete drip, switch to oral formulation. Discussed will need monitoring of possible associated adverse effects. Follow-up with cardiology for consideration of switching to other options. Replace hypokalemia, potassium reviewed, noted 3.2. Check magnesium. Reviewed TSH, noted 3.79. Check free T4. Obtain TTE. Monitor on telemetry. Complete troponin EKG series. Check respiratory viral panel. Reviewed ER documentation, discussed with ER physician. Plan UTI: UA yesterday with suspected UTI, gram-negative rods on urine culture so far. Follow-up urine culture results. Continue ciprofloxacin. Noncommunicative, with dementia, aphasia Warnicke encephalopathy PAD CAD: Continue aspirin, statin Other medical problems Attestations 2 Medical Necessity Statement*: Place in observation for additional assessment management of recurrent syncopal episodes afib with RVR. Diagnoses Syncope R55 Paroxysmal atrial fibrillation with RVR I48.0
--- NOTE | 2023-03-28 19:36 | USCV_ITS ---
Daisy Malik Age: 77 Gender: F : 1945 Exam Date: 03/28/2023 20:12 Ordering Phys: Erik Townsend MD Technologist: CAMPBELL Exam Location: [facility] [place] Indication: Afib, syncope. No history of cardiac intervention per son. BP: 108 / 56 HR: 66 Rhythm: Mostly sinus rhythm with some strings of Afib Technical Quality: Adequate MEASUREMENTS (Male / Female) Normal Values 2D ECHO LV Diastolic Diameter PLAX 3.9 cm 4.2 - 5.9 / 3.9 - 5.3 cm LV Systolic Diameter PLAX 2.5 cm IVS Diastolic Thickness 1.3 cm 0.6 - 1.0 / 0.6 - 0.9 cm IVS Systolic Thickness 1.4 cm LVPW Diastolic Thickness 1.1 cm 0.6 - 1.0 / 0.6 - 0.9 cm LVPW Systolic Thickness 1.0 cm LVOT Diameter 1.7 cm LV Ejection Fraction 2D Teich 63.6 % LV Ejection Fraction MOD 2C 60.6 % LV Ejection Fraction 2C AL 60.5 % LA Diameter 4.0 cm LA Width 4.7 cm LA Height 5.8 cm RA Width 3.8 cm RA Height 3.7 cm Aorta at Sinotubular Diameter 2.4 cm IVC Diameter 1.6 cm M-MODE Aortic Annulus Diameter 3.0 cm LA Ao Ratio MM 1.5 MV E Point Septal Separation 1.0 cm DOPPLER AV Peak Velocity 340.0 cm/s LVOT Peak Velocity 122.0 cm/s AV Area Cont Eq vti 0.7 cm squared AV Area Cont Eq pk 0.8 cm squared MV Area PHT 1.9 cm squared Mitral E to A Ratio 1.5 MV E' Velocity 78.0 cm/s Mitral E to MV E' Ratio 16.8 Mitral E to LV E' Lateral Ratio 17.6 Mitral E to LV E' Septal Ratio 16.2 TR Peak Velocity 225.0 cm/s TR Peak Gradient 20.3 mmHg TV Peak E Velocity 39.0 cm/s Right Atrial Pressure 5.0 mmHg Pulmonary Artery Systolic Pressu 25.3 mmHg PV Peak Velocity 88.0 cm/s RV Acceleration Time 0.1 s RV Ejection Time 0.3 s RV AcT/ET 0.4 FINDINGS Left Ventricle Normal left ventricular size and systolic function, EF 60 %. Mild left ventricular hypertrophy. Grade III/IV diastolic dysfunction (restrictive filling pattern), severely elevated filling pressures. Right Ventricle Normal right ventricular size and systolic function. Right Atrium Normal right atrial size. Left Atrium Mildly increased left atrial size. Mitral Valve Thickened mitral valve. Moderate mitral annular calcification. Mild mitral valve regurgitation. Aortic Valve Moderate aortic valve calcification. Severe low gradient aortic valve stenosis, mean gradient 22.4 mmHg, BERNABE 0.72 cm squared. Peak velocity of 3.4 m/s with a peak gradient of 46 mmHg. Moderate aortic valve regurgitation. The pressure half-time for the aortic regurgitation was 0.379 seconds Tricuspid Valve Mild tricuspid valve regurgitation. Pulmonic Valve Mild pulmonary valve regurgitation. Pericardium No pericardial effusion. Aorta Normal aortic annulus size. IVC Normal inferior vena cava. CONCLUSIONS Normal left ventricular size and systolic function, EF 60 %. Mild left ventricular hypertrophy. Grade III/IV diastolic dysfunction (restrictive filling pattern), severely elevated filling pressures. Mildly increased left atrial size. Severe low gradient aortic valve stenosis, mean gradient 22.4 mmHg, BERNABE 0.72 cm squared. Peak velocity of 3.4 m/s with a peak gradient of 46 mmHg. Moderate aortic valve regurgitation. Moderate aortic valve regurgitation. Moderate aortic valve calcification. Mild tricuspid and pulmonic valve regurgitation. Estimated pulmonary artery peak systolic pressure 25 mmHg There is no pericardial effusion. There are no intracardiac masses. No similar previous studies are available for comparison Dr Meg Ramirez MD [facility] (Electronically Signed) Final Date: 29 March 2023 09:59 S
--- NOTE | 2023-03-28 19:36 | USCV_ITS ---
Daisy Malik Age: 77 Gender: F : 1945 Exam Date: 03/28/2023 19:46 Ordering Phys: Erik Townsend MD Technologist: CAMPBELL [place]am Location: [facility] [place] [facility] [place] Indication: assess for DVT No history of DVT per son. HISTORY: assess for DVT No history of DVT per son. PROCEDURES: Venous duplex imaging was performed in bilateral lower extremities. The following venous structures were evaluated: common femoral vein, profunda vein, proximal portion of the greater saphenous vein, superficial femoral vein, and the popliteal vein. In addition, the posterior tibial veins were evaluated. Serial compression, augmentation maneuvers, and spectral Doppler flow evaluation were performed, which were normal. Bilaterally, the common femoral, superficial femoral, profunda femoral, popliteal, posterior tibial, and greater saphenous veins were identified and interrogated in the standard fashion. These veins were found to be easily compressible with spontaneous blood flow. No evidence of thrombus noted. CONCLUSIONS No evidence of right lower extremity DVT. No evidence of left lower extremity DVT. Gurpreet Adamson MD (Electronically Signed) Final Date: 29 March 2023 09:04 S
[2023-03-28 20:24] LABS: Magnesium 1.9 mg/dL (1.7-2.3)
[2023-03-28] MEDS: potassium chloride oral liq 20 mEq/15 mL UDC 40 MEQ PO (20:26)
[2023-03-28] MEDS: heparin 5,000 unit/mL INJ 1 mL 5000 UNIT SUBCUT (20:26)
[2023-03-28 21:26] LABS: Free T4 Free Thyroxine 0.87 ng/dL (0.82-1.77)
[2023-03-28 21:33] LABS: Troponin 5 6HR 40.35 ng/L (0-10); Troponin 5 6HR Delta 5.35 ng/L (0-12)
[2023-03-28 22:52] LABS: Adenovirus Not Detected (NOT DETECT); Chlamydia Pneumoniae Not Detected (NOT DETECT); Coronavirus 229E,HKU1,NL63,OC4 Not Detected (NOT DETECT); Human Metapneumovirus Not Detected (NOT DETECT); Human Rhinovirus/Enterovirus Not Detected (NOT DETECT); Influenza A Not Detected (NOT DETECT); Influenza A H1 Not Detected (NOT DETECT); Influenza A H1-2009 Not Detected (NOT DETECT); Influenza A H3 Not Detected (NOT DETECT); Influenza B Not Detected (NOT DETECT); Mycoplasma Pneumoniae Not Detected (NOT DETECT); Parainfluenza Virus Type 1 Not Detected (NOT DETECT); Parainfluenza Virus Type 2 Not Detected (NOT DETECT); Parainfluenza Virus Type 3 Not Detected (NOT DETECT); Parainfluenza Virus Type 4 Not Detected (NOT DETECT); Respiratory Syncytial Virus A Not Detected (NOT DETECT); Respiratory Syncytial Virus B Not Detected (NOT DETECT)
[2023-03-28 23:41] LABS: SARS-COV-2 Detected (NOT DETECT)
[2023-03-29] VITALS (68 sets, daily range): BP systolic 85–133; BP diastolic 48–78; PULSE 52–71; RESP 3–30; TEMP 36.9–37.1; O2SAT 89–99
--- NOTE | 2023-03-29 01:43 | PC.NURSE ---
There is no remdesivir vials in the hospital. supervisor plastering said to re time it for in the morning.
[2023-03-29 05:10] LABS: Basophils % 0.2 %; Hematocrit 35.1 % (36-47); Lymphocytes # 0.7 10^3/uL (0.8-4.8); Lymphocytes % 15.9 %; Mean Corpuscular HGB Conc 32.5 g/dL (30-55); Mean Corpuscular Hemoglobin 30.2 pg (27-33); Mean Corpuscular Volume 92.9 fl (85-98); Mean Platelet Volume 11.5 fL (7.4-10.4); Monocytes % 23.2 %; Neutrophils # 2.62 10^3/uL (1.8-7.7); Neutrophils % 60.2 %; Nucleated Red Blood Cells % 0 %; Platelet Count 140 10^3/cmm (157-399); Red Blood Count 3.78 10^6/uL (3.85-5.65); Red Cell Distribution Width 12.9 % (12.1-15.1); White Blood Count 4.35 10^3/uL (3.29-11.43)
[2023-03-29 05:29] LABS: Blood Urea Nitrogen 17 mg/dL (8-23); Calcium 8.2 mg/dL (8.5-10.5); Carbon Dioxide 21 mmol/L (22-29); Chloride 104 mmol/L (98-107); Glucose 101 mg/dL (65-115); Osmolality Calculated 280 mOsm/kg (285-295); Sodium 134 mmol/L (136-145)
[2023-03-29] MEDS: dexamethasone 4 mg Tablet 6 MG PO (09:34)
[2023-03-29] MEDS: heparin 5,000 unit/mL INJ 1 mL 5000 UNIT SUBCUT (09:34)
[2023-03-29] MEDS: atorvastatin 40 mg Tablet 80 MG PO (09:34)
[2023-03-29] MEDS: aspirin 81 mg EC Tablet PO (09:34)
[2023-03-29] MEDS: remdesivir 200 MG in sodium chloride 0.9% (100 ml) 60 ML 100 MG IV (09:35)
[2023-03-29] MEDS: amiodarone 200 mg Tablet 400 MG PO (10:15)
--- NOTE | 2023-03-29 13:01 | P.CONIM_ITS ---
Providers/Reason For Consult 2 Consulting Physician/Specialty*: Piero Ro MD/ Cardiology Reason for Consult*: Aortic stenosis Requesting Physician: Dr Townsend Attending Physician: Erik Townsend History of Present Illness History of Present Illness Daisy Malik is a 77 year old female with no significant prior cardiac history was admitted to hospital with syncope and was found to be in A-fib with RVR. Patient is also found to have covid. Also getting treatment for UTI. Echocardiogram shows severe aortic stenosis by valve area. Valve area is calculated to be 0.72 cm2. Mean gradient across aortic valve is 22 mmHg. Patient has significant dementia. And does not give any meaningful history. Her son is at bedside. She had syncopal episodes. No significant chest pain. Troponin was mildly elevated with no significant uptrend. Review of Systems 2 General: Reports: ROS unobtainable due to medical condition and ROS unobtainable due to mental status Medications/Allergies Home Medications Medication Instructions Recorded Confirmed Last Taken Type ascorbic acid (vitamin C) 250 mg 250 mg PO DAILY 02/22/23 04/10/23 04/09/23 History tablet aspirin 81 mg tablet,delayed 81 mg PO DAILY 02/22/23 04/10/23 04/09/23 History release cholecalciferol (vitamin D3) 10 10 mcg PO DAILY 02/22/23 04/10/23 04/09/23 History mcg (400 unit) capsule rosuvastatin 20 mg tablet (Crestor) 20 mg PO DAILY #90 tabs 03/26/23 04/10/23 04/09/23 Rx amiodarone 200 mg tablet (Pacerone) See Rx Instructions .Route 03/29/23 04/10/23 04/09/23 Rx .COMPLEX #180 tabs Allergies Allergy/AdvReac Type Severity Reaction Status Date / Time Penicillins Allergy Unknown Verified 04/10/23 09:33 Current Medications Generic Name Dose Route Start Last Admin Trade Name Freq PRN Reason Stop Dose Admin Amiodarone HCl 400 mg 03/29/23 10:05 03/29/23 10:15 Amiodarone 200 Mg Tablet PO 400 mg BID CECY Administration Aspirin 81 mg 03/29/23 09:00 03/29/23 09:34 Aspirin 81 Mg Ec Tablet PO 81 mg DAILY CECY Administration Atorvastatin Calcium 80 mg 03/29/23 09:00 03/29/23 09:34 Atorvastatin 40 Mg Tablet PO 80 mg DAILY CECY Administration Heparin Sodium (Porcine) 5,000 unit 03/28/23 19:36 03/29/23 09:34 Heparin 5,000 Unit/Ml Inj 1 Ml SUBCUT 5,000 unit Q12H CECY Administration Non-Formulary Medication 250 mg 03/28/23 20:00 03/29/23 09:09 Ciprofloxacin [Cipro] PO Not Given BID CECY PFSH Acute 2 PFSH: Medical History Hx of coronary angiogram Intermittent atrial fibrillation Arrhythmia Syncope Wernicke's receptive aphasia Peripheral arterial disease Atherosclerosis of coronary artery of [place] heart without angina pectoris B12 deficiency Dementia Surgical History Hx of hysterectomy Hx of carpal tunnel repair Family History Mother Alzheimer disease Diabetes Brother No problems noted. Social History Smoking and tobacco/nicotine status: never used tobacco/nicotine Alcohol intake: never Substance/Drug Use: unknown Vitals/I&O/Wt Last Vital Signs Temp 98.8 F 03/29/23 03:50 Pulse 56 L 03/29/23 12:15 Resp 18 03/29/23 12:15 BP 111/68 03/29/23 12:15 Pulse Ox 97 03/29/23 12:15 O2 Del Method Room Air 03/29/23 00:00 03/28/23 03/29/23 03/29/23 22:59 06:59 14:59 Intake Total 38.885 / 38.885 161.115 / 200.000 340 / 340 Balance 38.885 / 38.885 161.115 / 200.000 340 / 340 Weight last 48 hrs Weight 122 lb 3 oz Weight 123 lb 4 oz Weight 115 lb Physical Exam 2 Narrative: GENERAL: Patient is alert NECK: No jugular vein distension. [] HEENT: No cyanosis. No icterus. No pallor. [] HEART: Irregularly irregular. Grade 3/ 6 systolic murmur LUNGS: Clear to auscultate bilaterally. [] CENTRAL NERVOUS SYSTEM: Grossly nonfocal. [] EXTREMITIES: Lower extremities with 1+ edema bilaterally. Data 03/29/23 04:50 03/29/23 04:50 A&P Assessment and plan (1) Syncope: (2) Paroxysmal atrial fibrillation with RVR: (3) Aortic stenosis: Plan Patient's syncope can be multifactorial. Has COVID infection, UTI. Component of orthostatic hypotension cannot be ruled out. On echocardiogram she is found to have severe aortic stenosis with aortic valve area of 0.72 cm? and mean gradient of 22 mmHg. She will need further workup for that starting with heart cath to assess coronary arteries and confirm severity of aortic stenosis. I had a detailed discussion with patient's family about all possible options. Risks associated also discussed. They want to follow with cardiology as outpatient and decide on further workup if they want to proceed. Continue amiodarone. Secondary to patient's falls and syncope, anticoagulation will not be safe. Discussed with family about that as well. Thank you involving us with care of this patient. Please call with questions Consult Attestations 2 Medical Necessity Statement: Care expected to cross 2midnights. Coding Level of Care Code Acute Code for [facility] Diagnoses Syncope R55 Paroxysmal atrial fibrillation with RVR I48.0 Aortic stenosis I35.0
--- NOTE | 2023-03-29 15:08 | P.DS_ITS ---
Discharge Providers Date of Admission: 03/28/23 19:00 Date of Discharge: March 29, 2023 Attending Provider at Admission: Erik Townsend Attending Provider at Discharge: Erik Townsend Diagnoses at Discharge Discharge Diagnosis (1) Syncope: Status: Acute (2) Paroxysmal atrial fibrillation with RVR: Status: Acute Reason for Visit Reason for Visit: HYPOTENSION/ AFIB WITH RVR Brief History: 77-year lady with history of dementia, a phasia, noncommunicative, requiring supervision and supportive care, normally ambulatory and quite active, walks around at home, has had episodes of syncope including 1 yesterday, on evaluation in ER was found to have suggestion of UTI, at discharge with antibiotic (Cipro) was referred for echocardiogram, but had an additional syncopal episode. On assessment by EMS was found to be in atrial fibrillation with RVR. Received a dose of Cardizem IV to which she did not respond, was started on amiodarone in ER. She is unable to provide history, history obtained from her son and [id number]. It seems that her family members have been having flulike symptoms recently, with some cough, she has also had some cough in the last several days. It appears that she does have history of diagnosis of atrial fibrillation but did not have tachycardia or syncope with it previously. She used to be on anticoagulation a while back, but then was not wanting to take it herself afraid of bleeding, and more recently has not been continued due to risk of falls and bleeding. Takes 81 mg of aspirin. Hospital Course Hospital Course Due to symptomatic atrial fibrillation, syncope, continued on amiodarone drip, converted to oral amiodarone to maintain sinus rhythm. Not found to be a safe candidate for anticoagulation as previously. Hypokalemia was replaced. Mild elevation of TSH with normal free T4. Due to hospitalization found to have COVID, was started on remdesivir, with noted mild disease, saturating well on room air. Orthostatic assessed and were unremarkable. Discussed with him he does not need to continue midodrine. Discussed with patient's son echocardiogram revealed severe low gradient aortic valve stenosis as well as moderate AVR. Incidentally also noted mild left-ventricular hypertrophy, grade 3 diastolic dysfunction. Mild TVR and PVR. She was assessed by cardiology, per discussion with family they elected to discharge home with outpatient follow-up with consideration of additional workup and referral for valve replacement vs family considering alternatively expectant management and/or hospice. Continues on amiodarone, please monitor for any associated adverse effects related to her eyes, thyroid, lungs, liver. Asked to follow-up with cardiology for consideration of alternative rhythm control strategy. She will complete ciprofloxacin course as previously for UTI. Discussed with family with severity of valvular heart disease at risk of additional complications, comorbidities, readmission and mortality. Physical Exam Narrative: Accompanied by her son. Const: COMMON NORMALS: alert; negative for patient oriented x3 GENERAL APPEARANCE: cooperative ORIENTATION/CONSCIOUSNESS: Yes awake OTHER: Appears comfortable. HENMT: COMMON NORMALS: oropharynx normal Neck/C-Spine: COMMON NORMALS: no JVD Resp: COMMON NORMALS: normal respiratory effort and clear to auscultation bilaterally AUSCULTATION: clear to auscultation bilaterally Cardio: COMMON NORMALS: no JVD, regular rhythm, S1 normal heart sound present, S2 normal heart sound present and No murmurs present (Cardio) RHYTHM: regular rhythm HEART SOUNDS: S1 normal heart sound present and S2 normal heart sound present GI: COMMON NORMALS: Normal to inspection, nondistended, normoactive bowel sounds present, Soft to palpation and non-tender PALPATION: Yes Soft to palpation Extremity: COMMON NORMALS: no joint enlargement and no pedal edema Neuro: COMMON NORMALS: moves all extremities; negative for patient oriented x3 SENSORIUM/ORIENTATION: Yes alert Skin: COMMON NORMALS: no rashes or lesions noted GENERAL SKIN EXAM: no rashes or lesions noted Discharge Data Studies Completed and Pending Completed Studies During Hospitalization Category Date [place] [id number] Routine Ultrasound 03/28/23 19:36 Completed CV. echo complete* [id number] Routine Ultrasound 03/28/23 19:36 Completed Pending at discharge Category Date Time Status Basic Metabolic Panel AM LABS Lab 03/30/23 04:00 Ordered Basic Metabolic Panel AM LABS Lab 03/31/23 04:00 Ordered Blood Cultures ([facility]) Routine Lab 03/28/23 15:27 Received Blood Cultures ([facility]) Routine Lab 03/28/23 15:31 Received Complete Blood Count w/Auto AM LABS Lab 03/30/23 04:00 Ordered Complete Blood Count w/Auto AM LABS Lab 03/31/23 04:00 Ordered Laboratory Results WBC 4.35 10^3/uL (3.29-11.43) 03/29/23 04:50 RBC 3.78 10^6/uL (3.85-5.65) L 03/29/23 04:50 Hgb 11.40 g/dL (11.27-16.99) 03/29/23 04:50 Hct 35.1 % (36-47) L 03/29/23 04:50 MCV 92.9 fl (85-98) 03/29/23 04:50 MCH 30.2 pg (27-33) 03/29/23 04:50 MCHC 32.5 g/dL (30-55) 03/29/23 04:50 RDW 12.9 % (12.1-15.1) 03/29/23 04:50 Plt Count 140 10^3/cmm (157-399) L 03/29/23 04:50 MPV 11.5 fL (7.4-10.4) H 03/29/23 04:50 Neut % (Auto) 60.2 % 03/29/23 04:50 Lymph % (Auto) 15.9 % 03/29/23 04:50 [place] % (Auto) 23.2 % 03/29/23 04:50 Eos % (Auto) 0.0 % 03/29/23 04:50 Baso % (Auto) 0.2 % 03/29/23 04:50 Neut # (Auto) 2.62 10^3/uL (1.8-7.7) 03/29/23 04:50 Lymph # (Auto) 0.7 10^3/uL (0.8-4.8) L 03/29/23 04:50 [place] # (Auto) 1.0 10^3/uL (0.2-0.9) H 03/29/23 04:50 Eos # (Auto) 0.0 10^3/uL (0.0-0.8) 03/29/23 04:50 Baso # (Auto) 0.0 10^3/uL (0.0-0.1) 03/29/23 04:50 Nucleated RBC % (auto) 0 % 03/29/23 04:50 Nucleated RBCs # 0.0 /100WBC 03/29/23 04:50 D-Dimer 0.40 ug/mLFEU (0-0.59) 03/28/23 12:21 Sodium 134 mmol/L (136-145) L 03/29/23 04:50 Potassium 4.0 mmol/L (3.5-5.1) 03/29/23 04:50 Chloride 104 mmol/L (98-107) 03/29/23 04:50 Carbon Dioxide 21 mmol/L (22-29) L 03/29/23 04:50 Anion Gap 13.0 (5-19) 03/29/23 04:50 BUN 17 mg/dL (8-23) 03/29/23 04:50 Creatinine 1.6 mg/dL (0.5-0.9) H 03/29/23 04:50 GFR Calculation Not Reportable 03/29/23 04:50 Glucose 101 mg/dL (65-115) 03/29/23 04:50 Calculated Osmolality 280 mOsm/kg (285-295) L 03/29/23 04:50 Calcium 8.2 mg/dL (8.5-10.5) L 03/29/23 04:50 Magnesium 1.9 mg/dL (1.7-2.3) 03/28/23 14:40 Total Bilirubin 0.3 mg/dL (0.15-1.2) 03/28/23 14:40 AST 15 U/L (0-32) 03/28/23 14:40 ALT 10 U/L (0-33) 03/28/23 14:40 Alkaline Phosphatase 126 U/L (35-105) H 03/28/23 14:40 Troponin T Baseline 35 ng/L (0-10) H 03/28/23 14:40 Troponin T 120 Minute 39.28 ng/L (0-10) H 03/28/23 16:47 Delta Troponin T 4.28 ABS# (0-10) 03/28/23 16:47 Troponin T Hi Sens 6Hr 40.35 ng/L (0-10) H 03/28/23 20:50 Troponin T Hi Sens 6Hr Delta 5.35 ng/L (0-12) 03/28/23 20:50 Total Protein 5.6 g/dL (6.6-8.7) L 03/28/23 14:40 Albumin 3.4 g/dL (3.5-5.2) L 03/28/23 14:40 Globulin 2.2 g/dL (1.3-4.6) 03/28/23 14:40 TSH 6.79 uIU/mL (0.27-4.20) H 03/28/23 14:40 Free T4 0.87 ng/dL (0.82-1.77) 03/28/23 16:47 Urine Color Straw (Yellow) 03/28/23 15:00 Urine Appearance Hazy (CLEAR) A 03/28/23 15:00 Urine pH 5 (5-7) 03/28/23 15:00 Ur Specific Effie 1.015 (1.005-1.030) 03/28/23 15:00 Urine Protein 1+ (Negative) H 03/28/23 15:00 Urine Glucose (UA) 2+ (Normal) H 03/28/23 15:00 Urine Ketones Negative (Negative) 03/28/23 15:00 Urine Blood 3+ (Negative) H 03/28/23 15:00 Urine Nitrate Negative (Negative) 03/28/23 15:00 Urine Bilirubin Neg (Negative) 03/28/23 15:00 Urine Urobilinogen Norm mg/dL (Negative) 03/28/23 15:00 Ur Leukocyte Esterase Negative (Negative) 03/28/23 15:00 Urine RBC 0-4 /hpf (0-2) H 03/28/23 15:00 Urine WBC 5-10 /hpf (0-5) H 03/28/23 15:00 Ur Squamous Epith Cells 0-4 /hpf (0-5) H 03/28/23 15:00 Amorphous Sediment 1+ /hpf 03/28/23 15:00 Urine Bacteria Trace /hpf (NONE) 03/28/23 15:00 Fine Granular Casts 0-4 /lpf H 03/28/23 15:00 Urine Mucus Trace /hpf 03/28/23 15:00 Nasal Influ A H1 2009 PCR Not detected (NOT DETECT) 03/28/23 21:00 Adenovirus (PCR) Not detected (NOT DETECT) 03/28/23 21:00 C. pneumoniae DNA (PCR) Not detected (NOT DETECT) 03/28/23 21:00 Coronavirus 229E (PCR) Not detected (NOT DETECT) 03/28/23 21:00 Human Metapneumovir PCR Not detected (NOT DETECT) 03/28/23 21:00 Influenza A (H1) PCR Not detected (NOT DETECT) 03/28/23 21:00 Influenza A (H3) PCR Not detected (NOT DETECT) 03/28/23 21:00 Influenza Type A (PCR) Not detected (NOT DETECT) 03/28/23 21:00 Influenza Type B (PCR) Not detected (NOT DETECT) 03/28/23 21:00 M. pneumoniae (PCR) Not detected (NOT DETECT) 03/28/23 21:00 Parainfluenza 1 (PCR) Not detected (NOT DETECT) 03/28/23 21:00 Parainfluenza 2 (PCR) Not detected (NOT DETECT) 03/28/23 21:00 Parainfluenza 3 (PCR) Not detected (NOT DETECT) 03/28/23 21:00 Parainfluenza 4 (PCR) Not detected (NOT DETECT) 03/28/23 21:00 RSV Type A (PCR) Not detected (NOT DETECT) 03/28/23 21:00 RSV Type B (PCR) Not detected (NOT DETECT) 03/28/23 21:00 Entero/Rhino (PCR) Not detected (NOT DETECT) 03/28/23 21:00 SARS-CoV-2 (PCR) Detected (NOT DETECT) A 03/28/23 21:00 Vitals Last Vital Signs Temp 98.8 F 03/29/23 03:50 Pulse 56 L 03/29/23 12:15 Resp 18 03/29/23 12:15 BP 111/68 03/29/23 12:15 Pulse Ox 97 03/29/23 12:15 O2 Del Method Room Air 03/29/23 00:00 Discharge Plan Discharge Patient Disposition: Home Condition: Fair Prescriptions: New Pacerone 200 mg Tablet See Rx Instructions .ROUTE .COMPLEX Qty: 180 0RF Rx Instructions: 400 mg twice daily for 13 more doses (6 more days), then decrease to 200 mg twice daily Continued ascorbic acid (vitamin C) 250 mg tablet 250 mg PO DAILY cholecalciferol (vitamin D3) 10 mcg (400 unit) capsule 10 mcg PO DAILY aspirin 81 mg tablet,delayed release (DR/EC) 81 mg PO DAILY rosuvastatin [Crestor] 20 mg tablet 20 mg PO DAILY Qty: 90 5RF hnythscegazlol-quqnulsabhpv-AC 1-2.5-5 mg/5 mL Solution 10 ml PO Q4H PRN (Reason: cold and fever) Cipro 250 mg/5 mL suspension,microcapsule recon 250 mg PO BID 5 Days Qty: 70 0RF Discharge Orders: Discharge Order (Routine); Ordered 03/29/23 Ordered By: Erik Townsend Referrals: Abraham Cabral at [facility] [Other] - 1 week Piero Ro M.D [Physician] - 2 weeks (Severe aortic stenosis, mod AVR, AFib, syncope) Discharge Diet: Cardiac Discharge Activity: Resume usual activity Patient Instructions: Amiodarone (By mouth), A-fib (Atrial Fibrillation) (GEN), Aortic Stenosis (GEN), Aortic Regurgitation (GEN), Fall Prevention (GEN), Aortic Valve Replacement (GEN), Pain Management Activity Restrictions/Additional Instructions: Follow-up with your primary doctor for reassessment of recovery from COVID as well as urinary tract infection. Follow-up with your primary doctor as well as cardiology for reassessment of rhythm control of atrial fibrillation with amiodarone. Have your primary provider continue follow-up and monitoring for any adverse effects with amiodarone as discussed related to including her eyes, thyroid, lungs, liver. Discussed with cardiology whether amiodarone can be switched to another medication. Follow-up with your primary doctor as well as cardiology with regards to finding of new severe aortic valve stenosis as well as moderate aortic valve regurgitation/leak back. Rise slowly from laying to sitting and sitting to standing, in case getting lightheaded should immediately sit down or lie down to avoid fainting, falls and injury. Maintain strict fall precautions. Call the [facility] Card[facility] and schedule a follow up appt with Dr. Ro for 2 weeks from the discharge date. [phone] Discharge Attestations Time Spent in Discharge Care*: greater than 30 min Quality Metrics Clinical Quality Measures [ No reported AMI, CVA or VTE this stay] Coding Level of Care Code 81127 Total time (in minutes) for Discharge: 55 Diagnoses Syncope R55 Paroxysmal atrial fibrillation with RVR I48.0
== END 2023-03-29 16:07 | disposition home or self-care (01) ==
LOC: ER 16:20 → ICU 19:00
PROVIDERS: Admitting Provider Internal Medicine; Emergency Provider Family Medicine; Visit Provider Internal Medicine
DX: U07.1 COVID-19 (principal); I48.0 Paroxysmal atrial fibrillation; R55 Syncope and collapse; F03.90 Unspecified dementia, unspecified severity, without behavioral disturbance, psychotic disturbance, mood disturbance, and anxiety; R47.01 Aphasia; N39.0 Urinary tract infection, site not specified; Z79.82 Long term (current) use of aspirin; I35.0 Nonrheumatic aortic (valve) stenosis; G93.40 Encephalopathy, unspecified; I25.10 Atherosclerotic heart disease of native coronary artery without angina pectoris; I73.9 Peripheral vascular disease, unspecified
CPT/HCPCS: 36415; 80048; 80053; 81001; 83735; 84439; 84443; 84484; 85025; 85378; 87040; 87486; 87581; 87633; 93005; 93306; 93970; 96365; 96366; 96367; 96372; 96375; 99291; G0378; J0248; J0282; J0283; J1644; J8540

== ENCOUNTER 2023-04-10 09:26 | Inpatient (IN) | payer MEDICARE, MEDICAID, SELFPAY ==
[2023-04-10] VITALS (19 sets, daily range): BP systolic 114–154; BP diastolic 59–91; PULSE 55–79; RESP 13–21; TEMP 36.1–36.8; O2SAT 94–99; BMI 31.2; BMI 25.2
--- NOTE | 2023-04-10 | XR_ITS ---
WS: [id number] Right hip, 2 views, 04/10/2023 Clinical Data: TRAUMA Comparison: None. Findings: There is a comminuted intertrochanteric fracture of the right hip. The right femoral head remains wit hin the acetabulum. The left hip is intact. There is a fecal impaction. The pelvis shows no fractures. Impression: Comminuted intertrochanteric fracture right hip.
--- NOTE | 2023-04-10 | XR_ITS ---
WS: [id number] C-ARM RADIOGRAPHS RIGHT HIP; 5 IMAGES HISTORY: JULIA DONG COMPARISON: 04/11/2023 Intraoperative imaging during screw and short intramedullary chidi fixation of an intratrochanteric fra cture. Fracture in good position and alignment. Avulsion of the lesser trochanter. IMPRESSION: Intraoperative ORIF RIGHT intratrochanteric hip fracture.
--- NOTE | 2023-04-10 09:52 | XR_ITS ---
WS: [id number] Portable AP upright chest, 04/10/2023 Clinical Data: fall Comparison: Portable chest, 03/27/2023 Findings: No nodules, masses or effusions are seen. The heart is normal. The pulmonary vascularity is not increased. No pneumonia or pneumothorax is seen. The aortic arch and descending thoracic aorta s how calcification. Impression: Atherosclerosis.
--- NOTE | 2023-04-10 10:04 | CTR_ITS ---
PROCEDURE INFORMATION: Exam: CT Head Without Contrast Exam date and time: 04/10/2023 10:28 AM Age: 77 years old Clinical indication: Injury or trauma; Blunt trauma (contusions or hematomas); Patient HX: EMS arrival for ground level fall at home. History of advanced dementia. Unable to obtain further history. ; Additional info: Fall, head injury TECHNIQUE: Imaging protocol: Computed tomography of the head without contrast. Radiation optimization: All CT scans at this facility use at least one of these dose optimization techniques: automated exposure control; mA and/or kV adjustment per patient size (includes targeted exams where dose is matched to clinical indication); or iterative reconstruction. COMPARISON: MR head wo con* [id number] 02/08/2023 3:58 PM RADIATION DOSE METRICS: Total DLP (mGy-cm): 644 FINDINGS: Brain: There is no acute intracranial hemorrhage. There is lucency in the cerebral white matter, likely microvascular disease although non-specific. No evidence of mass. There is no mass effect or midline shift. Arce white differentiation is intact. There are no extra-axial fluid collections. 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 Cerebral ventricles: The ventricles and sulci are enlarged, consistent with prominent volume loss / atrophy. No hydrocephalus. Paranasal sinuses: Mild scattered mucosal thickening in paranasal sinuses. Mastoid air cells: No significant mastoid effusion. Bones/joints: No acute fracture. Soft tissues: Unremarkable as visualized. Vasculature: There is vascular calcification. CT/CT head wo con* [id number] IMPRESSION: 1. No evidence of acute intracranial abnormality. No evidence of acute infarction, hemorrhage, or mass. 2. Atrophy and microvascular disease.
--- NOTE | 2023-04-10 10:04 | ECG_ITS ---
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 Measurements Intervals [place] Rate: 57 P: 87 FL: 166 QRS: 42 QRSD: 92 T: 61 QT: 449 QTc: 438 Interpretive Statements SINUS BRADYCARDIA Compared to ECG 03/28/2023 16:38:25 Sinus rhythm no longer present Electronically Signed On 04-10-2023 12:52:33 [employer] by Piero Ro M.D. [email or web address] ([email or web address]) [facility] va medical centerXE Corporationselect medical specialty hospital - [id number]
--- NOTE | 2023-04-10 10:04 | XR_ITS ---
WS: [id number] Right knee, AP and lateral views, 04/10/2023 Clinical Data: trauma Comparison: None. Findings: No fractures or dislocations are seen. There is medial joint compartment narrowing with sclerosis. Th ere is a spur of the medial tibial plateau. There is calcification of the lateral joint cartilage. Impression: 1. Negative for right knee fracture. 2. Medial joint compartment narrowing. Kellgren-Iain Classification: grade 2 (minimal): definite osteophytes and possible joint space na rrowing
--- NOTE | 2023-04-10 10:04 | XR_ITS ---
WS: [id number] Right femur and thigh, AP and lateral views, 04/10/2023 Clinical Data: trauma Comparison: None. Findings: The comminuted intertrochanteric fracture of the right hip is seen. The shaft of the femur is intact. The soft tissues of the thigh are unremarkable. The distal right femur is intact. Impression: Comminuted intertrochanteric fracture of the right hip.
--- NOTE | 2023-04-10 10:07 | W.ED.EXTPRO ---
HPI - Extremity Problem General: Chief complaint: Extremity Injury, Lower Stated complaint: left hip pain post fall Time Seen by Provider: 04/10/23 09:35 History of Present Illness: 77-year-old female with a history of atrial fibrillation and hyperlipidemia who had a fall this morning. She has known dementia. She was recently treated for UTI. Family says she did hit her head. She is only on amiodarone and a statin. And a baby aspirin. No other blood thinners. No loss of consciousness. She is at her baseline mentation right now. No focal motor deficits. She does have shortening and rotation of her right leg. No chest pain. No cough. No fevers. No abdominal pain. No dysuria. Review of Systems Narrative: Constitutional symptoms: Negative except as documented in HPI. Skin symptoms: Negative except as documented in HPI. Eye symptoms: Negative except as documented in HPI. ENMT symptoms: Negative except as documented in HPI. Respiratory symptoms: Negative except as documented in HPI. Cardiovascular symptoms: Negative except as documented in HPI. Gastrointestinal symptoms: Negative except as documented in HPI. Genitourinary symptoms: Negative except as documented in HPI. Musculoskeletal symptoms: Negative except as documented in HPI. Neurologic symptoms: Negative except as documented in HPI. Psychiatric symptoms: Negative except as documented in HPI. Endocrine symptoms: Negative except as documented in HPI. [facility] ED PFSH: Medical History (Updated 04/10/23 @ 11:57 by Ashley Ladd MD) Aortic stenosis Hx of coronary angiogram Intermittent atrial fibrillation Arrhythmia Syncope Wernicke's receptive aphasia Peripheral arterial disease Atherosclerosis of coronary artery of [place] heart without angina pectoris B12 deficiency Dementia Surgical History Hx of hysterectomy Hx of carpal tunnel repair Family History Mother Alzheimer disease Diabetes Brother No problems noted. Social History Smoking and tobacco/nicotine status: never used tobacco/nicotine Alcohol intake: never Substance/Drug Use: unknown Physical Exam Narrative: EXAM NARRATIVE: General: Alert, no acute distress. Skin: Warm, dry. Head: Normocephalic, atraumatic. Neck: Supple, trachea midline. Eye: Extraocular movements are intact. Ears, nose, mouth and throat: mucosa moist. Cardiovascular: Regular, Normal peripheral perfusion. Respiratory: Lungs are clear to auscultation, respirations are non-labored, breath sounds are equal, Symmetrical chest wall expansion. Gastrointestinal: Soft, Nontender, Non distended, Normal bowel sounds. Musculoskeletal: Shortening and rotation of the right leg. Pain at the hip with movement of the leg. She is neurovascularly intact. Neurological: Alert and oriented to person. No focal neurological deficit observed. Psychiatric: Cooperative, appropriate mood & affect. Course Vital Signs: Vital signs: Vital Signs Temperature 98.3 F 04/10/23 09:28 Pulse Rate 55 L 04/10/23 10:41 Respiratory Rate 18 04/10/23 09:28 Blood Pressure 154/81 04/10/23 10:41 Pulse Oximetry 98 04/10/23 10:41 Oxygen Delivery Me thod Room Air 04/10/23 10:41 MDM - Extremity (Nontraumatic) Medical Decision Making CT of the head ordered to rule out intracranial hemorrhage or skull fractures. X-ray of the hip was ordered that did show a hip fracture. Chest x-ray and other lab work were ordered for presurgical clearance. X-ray of the right hip and pelvis: This showedStart email that she can fully take long to get my placement initial 2 or 3 critical ones and intertrochanteric right hip fracture. No obvious pelvic fractures. This was reviewed and interpreted by myself the emergency room physician. Lab Data 04/10/23 10:38 04/10/23 10:[address] 04/10/23 10:04 IMPRESSION: 1. No evidence of acute intracranial abnormality. No evidence of acute infarction, hemorrhage, or mass. 2. Atrophy and microvascular disease. Laboratory Results WBC 12.67 10^3/uL (3.29-11.43) H 04/10/23 10:38 RBC 4.16 10^6/uL (3.85-5.65) 04/10/23 10:38 Hgb 12.60 g/dL (11.27-16.99) 04/10/23 10:38 Hct 40.1 % (36-47) 04/10/23 10:38 MCV 96.4 fl (85-98) 04/10/23 10:38 MCH 30.3 pg (27-33) 04/10/23 10:38 MCHC 31.4 g/dL (30-55) 04/10/23 10:38 RDW 13.2 % (12.1-15.1) 04/10/23 10:38 Plt Count 282 10^3/cmm (157-399) 04/10/23 10:38 MPV 10.1 fL (7.4-10.4) 04/10/23 10:38 Neut % (Auto) 79.3 % 04/10/23 10:38 Lymph % (Auto) 11.2 % 04/10/23 10:38 [place] % (Auto) 8.4 % 04/10/23 10:38 Eos % (Auto) 0.1 % 04/10/23 10:38 Baso % (Auto) 0.4 % 04/10/23 10:38 Neut # (Auto) 10.06 10^3/uL (1.8-7.7) H 04/10/23 10:38 Lymph # (Auto) 1.4 10^3/uL (0.8-4.8) 04/10/23 10:38 [place] # (Auto) 1.1 10^3/uL (0.2-0.9) H 04/10/23 10:38 Eos # (Auto) 0.0 10^3/uL (0.0-0.8) 04/10/23 10:38 Baso # (Auto) 0.1 10^3/uL (0.0-0.1) 04/10/23 10:38 Nucleated RBC % (auto) 0 % 04/10/23 10:38 Nucleated RBCs # 0.0 /100WBC 04/10/23 10:38 Sodium 137 mmol/L (136-145) 04/10/23 10:38 Potassium 4.0 mmol/L (3.5-5.1) 04/10/23 10:38 Chloride 106 mmol/L (98-107) 04/10/23 10:38 Carbon Dioxide 20 mmol/L (22-29) L 04/10/23 10:38 Anion Gap 15.0 (5-19) 04/10/23 10:38 BUN 16 mg/dL (8-23) 04/10/23 10:38 Creatinine 1.8 mg/dL (0.5-0.9) H 04/10/23 10:38 GFR Calculation Not Reportable 04/10/23 10:38 Glucose 112 mg/dL (65-115) 04/10/23 10:38 Calculated Osmolality 286 mOsm/kg (285-295) 04/10/23 10:38 Calcium 8.1 mg/dL (8.5-10.5) L 04/10/23 10:38 Total Bilirubin 0.6 mg/dL (0.15-1.2) 04/10/23 10:38 AST 11 U/L (0-32) 04/10/23 10:38 ALT 12 U/L (0-33) 04/10/23 10:38 Alkaline Phosphatase 121 U/L (35-105) H 04/10/23 10:38 Total Protein 6.0 g/dL (6.6-8.7) L 04/10/23 10:38 Albumin 3.5 g/dL (3.5-5.2) 04/10/23 10:38 Globulin 2.5 g/dL (1.3-4.6) 04/10/23 10:38 Urine Color Yellow (Yellow) 04/10/23 10:50 Urine Appearance Cloudy (CLEAR) A 04/10/23 10:50 Urine pH 8 (5-7) H 04/10/23 10:50 Ur Specific [place] 1.015 (1.005-1.030) 04/10/23 10:50 Urine Protein 1+ (Negative) H 04/10/23 10:50 Urine Glucose (UA) 2+ (Normal) H 04/10/23 10:50 Urine Ketones Negative (Negative) 04/10/23 10:50 Urine Blood 2+ (Negative) H 04/10/23 10:50 Urine Nitrate Positive (Negative) H 04/10/23 10:50 Urine Bilirubin Neg (Negative) 04/10/23 10:50 Prot Sulfosalicylic Acd Positive (Negative) 04/10/23 10:50 Urine Urobilinogen Norm mg/dL (Negative) 04/10/23 10:50 Ur Leukocyte Esterase Negative (Negative) 04/10/23 10:50 Urine RBC 0-4 /hpf (0-2) H 04/10/23 10:50 Urine WBC 0-4 /hpf (0-5) H 04/10/23 10:50 Ur Squamous Epith Cells None /hpf (0-5) 04/10/23 10:50 Amorphous Sediment 1+ /hpf 04/10/23 10:50 Urine Bacteria 3+ /hpf (NONE) H 04/10/23 10:50 Urine Mucus None /hpf 04/10/23 10:50 Lab work was remarkable for a bit of a elevation in her white count at 13. She is not anemic. Hemoglobin is 12.6. Electrolytes are not abnormal. Some is 137 potassium is 4. Renal function is slightly elevated at 16 and 1.8. Urine has a few whites and 3+ bacteria. Will defer treatment of this possible UTI to the hospitalist. XR interpretation done by ED provider, pending radiology final review ED provider radiology interpretation(s): X-ray of the hip and pelvis shows a right intertrochanteric hip fracture. No pelvic fracture. This was reviewed and interpreted by myself the emergency room physician. Chest x-ray: No acute process. No pneumothorax. No infiltrate. No cardiomegaly. This was reviewed and interpreted by myself the ER physician. EKG Data EKG 1: Other EKG comments: EKG: Time 10:25 AM rate 57 sinus bradycardia, No ST-T changes, no ectopy, normal MO & QRS intervals, This was reviewed and interpreted by myself the ER physician. Other Data - Consultation with orthopedics. Dr. Zhou saw the patient in the emergency room. -I discussed the patient with the hospitalist on-call who is admitting the patient. - Discussed findings and plan with patient. Answered any questions. - All laboratory values were reviewed and interpreted personally by myself, the ER physician - All imaging was reviewed and interpreted personally by myself, the ER physician. - Evaluation and treatment of this problem were appropriate in the emergency setting Discharge Plan Discharge Patient Disposition: Admitted As Inpatient Admit Provider: Alan Zapata Clinical Impression: Fracture of hip Condition: Stable Coding Level of Care Code ED Shaft Mechanic for Marge Bhardwaj
[2023-04-10 10:45] LABS: Basophils # 0.1 10^3/uL (0.0-0.1); Basophils % 0.4 %; Eosinophils % 0.1 %; Hematocrit 40.1 % (36-47); Lymphocytes # 1.4 10^3/uL (0.8-4.8); Lymphocytes % 11.2 %; Mean Corpuscular HGB Conc 31.4 g/dL (30-55); Mean Corpuscular Hemoglobin 30.3 pg (27-33); Mean Corpuscular Volume 96.4 fl (85-98); Mean Platelet Volume 10.1 fL (7.4-10.4); Monocytes # 1.1 10^3/uL (0.2-0.9); Monocytes % 8.4 %; Neutrophils # 10.06 10^3/uL (1.8-7.7); Neutrophils % 79.3 %; Nucleated Red Blood Cells % 0 %; Platelet Count 282 10^3/cmm (157-399); Red Blood Count 4.16 10^6/uL (3.85-5.65); Red Cell Distribution Width 13.2 % (12.1-15.1); White Blood Count 12.67 10^3/uL (3.29-11.43)
--- NOTE | 2023-04-10 11:06 | P.HP_ITS ---
Providers/Chief Complaint 2 Admitting Physician: Alan Zapata MD, hospitalist Primary Care Provider: ALEXX Turpin Chief Complaint: left hip pain post fall History of Present Illness Daisy Malik is a 77 year old female with history of dementia and severe aortic stenosis who presents to the emergency department with a fall at home. Apparently she was in bed, being cared for by her family member. The family member went to the bathroom and found her on the floor. They were unable to get her up from the floor, and she had obvious pain in her leg. No other obvious injuries. She was recently on the hospital March 29 for syncope. She was found to have A-fib. Amiodarone was initiated with good rate control. Secondary to fall risk she was not put on anticoagulation. She was also found to have COVID at that time from which she has recovered. History is taken from [id number], and granddaughter as patient has severe dementia unable to give adequate history. Cardiology determined she had severe aortic stenosis, and was to follow-up as an outpatient for this. Review of Systems 2 General: Reports: ROS unobtainable due to mental status Medications/Allergies Home Medications Medication Instructions Recorded Confirmed Last Taken Type ascorbic acid (vitamin C) 250 mg 250 mg PO DAILY 02/22/23 04/10/23 04/09/23 History tablet aspirin 81 mg tablet,delayed 81 mg PO DAILY 02/22/23 04/10/23 04/09/23 History release cholecalciferol (vitamin D3) 10 10 mcg PO DAILY 02/22/23 04/10/23 04/09/23 History mcg (400 unit) capsule rosuvastatin 20 mg tablet (Crestor) 20 mg PO DAILY #90 tabs 03/26/23 04/10/23 04/09/23 Rx amiodarone 200 mg tablet (Pacerone) See Rx Instructions .Route 03/29/23 04/10/23 04/09/23 Rx .COMPLEX #180 tabs Allergies Allergy/AdvReac Type Severity Reaction Status Date / Time Penicillins Allergy Unknown Verified 04/10/23 09:33 PFSH Acute 2 PFSH: Medical History (Updated 04/10/23 @ 12:28 by Alan Zapata MD) Aortic stenosis Hx of coronary angiogram Intermittent atrial fibrillation Arrhythmia Syncope Wernicke's receptive aphasia Peripheral arterial disease Atherosclerosis of coronary artery of [place] heart without angina pectoris B12 deficiency Dementia Surgical History Hx of hysterectomy Hx of carpal tunnel repair Family History Mother Alzheimer disease Diabetes Brother No problems noted. Social History Smoking and tobacco/nicotine status: never used tobacco/nicotine Alcohol intake: never Substance/Drug Use: unknown Vitals/I&O/Wt Last Vital Signs Temp 98.3 F 04/10/23 09:28 Pulse 55 L 04/10/23 10:41 Resp 18 04/10/23 09:28 BP 154/81 04/10/23 10:41 Pulse Ox 98 04/10/23 10:41 O2 Del Method Room Air 04/10/23 10:41 Weight last 48 hrs Weight 72.575 kg Physical Exam 2 Narrative: General exam is a white female, who can say yes or no but has trouble carrying on an extended conversation. Obviously confused. Skin no rash, bruise noted likely from Lovenox shot on abdomen Neuro no obvious focal deficits HEENT: Atraumatic normocephalic. Pupils equally round. Oropharynx clear Neck is supple no lymphadenopathy thyromegaly Cardiovascular regular rate and rhythm with occasional premature beat and a 3/6 systolic murmur heard best over her aortic area Lungs clear Abdomen is soft, no obvious organomegaly. exams deferred, Johnson noted Extremities no cyanosis clubbing or edema. Right hip is externally rotated. Distal cap refill intact. Urinary Catheter Management: Johnson: Cath Placed During This Visit: yes Urinary Catheter Date of Insertion: 04/10/23 Urinary Catheter Time of Insertion: 10:40 Data 04/10/23 10:38 04/10/23 10:38 Other Labs: Knee x-ray which I reviewed is no fracture Head CT which I reviewed demonstrates no acute changes Femur and hip and pelvis x-ray and I reviewed demonstrates an intertrochanteric hip fracture on the right Chest x-ray which I reviewed demonstrates no infiltrate, normal cardiac silhouette, atherosclerotic disease noted in the aortic arch EKG demonstrates sinus rhythm, normal axis, rate around 60. No obvious acute changes. By my read Recent echo in March demonstrated severe aortic stenosis with a valve area of 0.7 to, gradient of 22, moderate aortic regurgitation, pulmonary peak pressure of 25, 3/4 diastolic dysfunction and normal EF LFTs are normal with exception of alk phos slightly elevated 121 Calcium 8.1 Urinalysis demonstrates positive nitrate 0-4 reds 0-4 whites 3+ bacteria A&P Assessment and plan (1) Hip fracture, right: Patient presents with right hip fracture after a fall. It is not known if this was a syncopal event. She does have past history of syncopal events as well as atrial fibrillation. Telemetry Bedrest Pain control Orthopedic consultation Discussed with family patient is high risk for surgery considering her severe aortic stenosis. They want to proceed with surgery. They want her full code for now. (2) Fall: Status post fall Chest x-ray, head CT, knee x-ray without any obvious trauma (3) Abnormal urinalysis: Cannot rule out UTI with her urinalysis with positive nitrates and bacteria Placed on Rocephin Urine culture (4) Aortic stenosis: Has known severe aortic stenosis Family is not sure how to approach this currently. They are to keep cardiology follow-up. Considering her severe dementia they are not sure if they want valve replacement. (5) Dementia: Severe underlying dementia, which may complicate her recovery significantly. (6) Intermittent atrial fibrillation: Patient with history of intermittent atrial fibrillation Continue amiodarone started last hospital stay Not candidate for anticoagulation secondary to high risk for falls Continue aspirin Plan Other medical problems as outlined in past medical history Full code currently Anticoagulation with Lovenox to be started following surgery which will likely happen today. Attestations 2 Medical Necessity Statement*: Will need greater than 2 midnight stay for evaluation and treatment of hip fracture Diagnoses Hip fracture, right S72.001A Fall W19.XXXA Abnormal urinalysis R82.90 Aortic stenosis I35.0 Dementia F03.90 Intermittent atrial fibrillation I48.0 Time Spent (min) 46
[2023-04-10 11:09] LABS: Albumin Level 3.5 g/dL (3.5-5.2); Chloride 106 mmol/L (98-107); Sodium 137 mmol/L (136-145)
[2023-04-10 11:23] LABS: Bilirubin Urine Neg (Negative); Blood Urine 2+ (Negative); Glucose Urine UA 2+ (Normal); Ketones Urine Negative (Negative); Leukocyte Esterase Urine Negative (Negative); Nitrate Urine Positive (Negative); Protein Urine 1+ (Negative); Specific Gravity, Urine 1.015 (1.005-1.030); Sulfosalicylic Acid Urine Positive (Negative); Urine Appearance Cloudy (CLEAR); Urine Color Yellow (Yellow); Urobilinogen Urine Norm (Negative); pH Urine 8 (5-7)
[2023-04-10 11:29] LABS: Add Urine Culture? Yes; Amorphous Sediment Urine 1+ /hpf; Bacteria Urine 3+ /hpf; RBC Urine 0-4 /hpf (0-2); WBC Urine 0-4 /hpf (0-5)
[2023-04-10 11:44] LABS: Alanine Aminotransferase 12 U/L (0-33); Alkaline Phosphatase 121 U/L (35-105); Aspartate Amino Transferase 11 U/L (0-32); Blood Urea Nitrogen 16 mg/dL (8-23); Calcium 8.1 mg/dL (8.5-10.5); Carbon Dioxide 20 mmol/L (22-29); Globulin 2.5 g/dL (1.3-4.6); Glucose 112 mg/dL (65-115); Osmolality Calculated 286 mOsm/kg (285-295); Total Bilirubin 0.6 mg/dL (0.15-1.2)
[2023-04-10] MEDS: sodium chloride 0.9% 1,000 ML 50 ML IV (12:44)
[2023-04-10] MEDS: cefTRIAXone 1,000 MG in sodium chloride 0.9% (plus) 50 ML 100 MG IV (12:53)
--- NOTE | 2023-04-10 13:13 | P.CONIM_ITS ---
Providers/Reason For Consult 2 Consulting Physician/Specialty*: Kedar Zhou DO/orthopedic surgery Reason for Consult*: Right intertrochanteric femur fracture Requesting Physician: Dr. Wilberto WOODS Attending Physician: Alan Zapata MD Primary Care Provider: ALEXX Turpin History of Present Illness History of Present Illness H&P obtained from patient's family at bedside as well as from the hospitalist records. Daisy Malik is a 77 year old female with history of dementia and severe aortic stenosis who presents to the emergency department with a fall at home. Apparently she was in bed, being cared for by her family member. The family member went to the bathroom and found her on the floor. They were unable to get her up from the floor, and she had obvious pain in her right leg. No other obvious injuries. She was recently on the hospital March 29 for syncope. She was found to have A-fib. Rate controlled . S denies any anticoagulants except 81 aspirin she was also found to have COVID at that time from which she has recovered. History is taken from family at bedside as patient has severe dementia unable to give adequate history. Cardiology determined she had severe aortic stenosis, and was to follow-up as an outpatient for this. Right lower extremity shortened and externally rotated found to have a right intertrochanteric femur fracture the emergency department orthopedics was consulted for evaluation recommendations. Patient discussed with hospitalist is high risk given her severe aortic stenosis however we discussed this in detail with the family and they elect proceed with surgical intervention. Review of Systems 2 General: Reports: 10 or more systems reviewed and unremarkable except in HPI and below Medications/Allergies Home Medications Medication Instructions Recorded Confirmed Last Taken Type ascorbic acid (vitamin C) 250 mg 250 mg PO DAILY 02/22/23 04/10/23 04/09/23 History tablet aspirin 81 mg tablet,delayed 81 mg PO DAILY 02/22/23 04/10/23 04/09/23 History release cholecalciferol (vitamin D3) 10 10 mcg PO DAILY 02/22/23 04/10/23 04/09/23 History mcg (400 unit) capsule rosuvastatin 20 mg tablet (Crestor) 20 mg PO DAILY #90 tabs 03/26/23 04/10/23 04/09/23 Rx amiodarone 200 mg tablet (Pacerone) See Rx Instructions .Route 03/29/23 04/10/2304/09/24 Rx .COMPLEX #180 tabs Allergies Allergy/AdvReac Type Severity Reaction Status Date / Time Penicillins Allergy Unknown Verified 04/10/23 09:33 Current Medications Generic Name Dose Route Start Last Admin Trade Name Truong PRN Reason Stop Dose Admin Sodium Chloride 1,000 mls @ 50 mls/hr 04/10/23 11:56 04/10/23 12:44 Sodium Chloride 0.9% IV 50 mls/hr .Q20H CECY Administration Ceftriaxone Sodium 1,000 mg/ 50 mls @ 100 mls/hr 04/10/23 12:30 04/10/23 12:53 Sodium Chloride IV 100 mls/hr Q24H CECY Administration Protocol PFSH Acute 2 PFSH: Medical History (Updated 04/10/23 @ 13:36 by Kedar Zhou DO) Aortic stenosis Hx of coronary angiogram Intermittent atrial fibrillation Arrhythmia Syncope Wernicke's receptive aphasia Peripheral arterial disease Atherosclerosis of coronary artery of [place] heart without angina pectoris B12 deficiency Dementia Surgical History Hx of hysterectomy Hx of carpal tunnel repair Family History Mother Alzheimer disease Diabetes Brother No problems noted. Social History Smoking and tobacco/nicotine status: never used tobacco/nicotine Alcohol intake: never Substance/Drug Use: unknown Vitals/I&O/Wt Last Vital Signs Temp 98.1 F 04/10/23 12:00 Pulse 59 L 04/10/23 12:00 Resp 18 04/10/23 12:00 BP 143/86 04/10/23 12:00 Pulse Ox 94 04/10/23 12:00 O2 Del Method Room Air 04/10/23 12:00 Weight last 48 hrs Weight 129 lb 1.6 oz Weight 160 lb Physical Exam 2 Narrative: Severely demented female: Unable to obtain full physical examination secondary to patient's dementia. Right lower extremity shortened and externally rotated significant pain and tenderness palpation of the right hip as well as positive logroll examination unable perform [place] secondary to pain discomfort. She will wiggle her toes involuntarily but unable to assess dorsiflexion and plantarflexion secondary to patient's pain as well as dementia. Given her dementia unable to have a appropriate sensory examination. Right lower extremities warm well- perfused distal pulses are palpable. Secondary survey examination demonstrates no tenderness to palpation along the spine normal range of motion of the bilateral upper extremity joints with no deformities left lower extremity. No tenderness to the left hip knee foot or ankle with no deformities appreciated. Urinary Catheter Management: Johnson: Cath Placed During This Visit: yes Urinary Catheter Date of Insertion: 04/10/23 Urinary Catheter Time of Insertion: 10:40 Data 04/10/23 10:38 04/10/23 10:38 Xray Ortho: My impression: X-rays multiple views of the pelvis right femur and right knee reviewed and personally interpreted by myself demonstrating a displaced intertrochanteric femur fracture A&P Assessment and plan (1) Closed intertrochanteric fracture of right femur: Plan N.p.o. Hospitalist to admit and his primary Hold anticoagulation Pain control Nonweightbearing Ice as needed Plan to proceed with OR today for right hip trochanteric femur nail for right displaced intertrochanteric femur fracture. Family at bedside. Patient has severe dementia. We did talk in detail with the family myself as well as the hospitalist about patient's diagnosis and treatment recommendations at this point time for pain control as well as earlier mobilization would recommend right hip trochanteric femur nail they understand the risk benefits complication alternatives with surgery risk of surgery include not limited to make a better make it worse injury to nerves vessels or tendons blood clot, heart attack, stroke, on the table. Understand the risk of surgery they like to proceed all questions answered at this time we will add her onto the surgery schedule today as she has been n.p.o. since yesterday. Coding Level of Care Code Acute Code for Chg Fwd Diagnoses Closed intertrochanteric fracture of right femur S72.141A Time Spent (min) 45
[2023-04-10] MEDS: sodium chloride 0.9% 1,000 ML 30 ML IV (15:12)
--- NOTE | 2023-04-10 15:34 | W.PM.OPSUD ---
Surgery/Procedure H&P Update DATE OF PROCEDURE: April 10, 2023 DATE H&P PERFORMED: 04/10/23 H&P UPDATE INFORMATION: I have reviewed H&P completed within last 30 days, I have examined patient prior to procedure and No changes to prior documentation PREOP DIAGNOSIS: Right hip intertrochanteric femur fracture PRIMARY INDICATION FOR PROCEDURE: Right hip intertrochanteric femur fracture PLANNED PROCEDURE: Operation Date: 04/10/23 16:00 Proposed Procedures p Trochanteric Femoral Nail(Right) - Kedar Zhou DO
[2023-04-10] MEDS: acetaminophen 1,000 MG/100 ML PIGGYBACK 400 MG IV (16:15)
--- NOTE | 2023-04-10 16:16 | ANES.PREANE2 ---
Pre-Anesthetic Assessment Height/Weight: Height 1.52 m Weight 58.559 kg Temp Pulse Resp BP Pulse Ox O2 Del Method 98.3 F 67 16 124/84 97 Room Air 04/10/23 15:10 04/10/23 15:10 04/10/23 15:10 04/10/23 15:10 04/10/23 15:10 04/10/23 15:10 Preop Diagnosis: Right hip intertrochanteric femur fracture Operation Date: 04/10/23 16:00 Proposed Procedures p Trochanteric Femoral Nail(Right) - Kedar Abelardo, Familial anesthetic complications: none Was Beta Mannie taken within 24 hours: N/A Was Clonidine taken within 24 hours: N/A Last intake: Intake Last Liquid Date 04/09/23 Last Liquid Time 18:00 Last Solid Date 04/09/23 Last Solid Time 17:00 Social No alcohol and No tobacco Exam alert and clear to auscultation bilaterally Airway Submandibular: within normal limits Cervical ROM: within normal limits Mallampati: Class II Dentition: caps CV/HEM Atrial Fibrillation, Anemia, Arrythmia, Hypertension, Murmur (Severe ) and Peripheral Vascular Disease CONCLUSIONS Normal left ventricular size and systolic function, EF 60 %. Mild left ventricular hypertrophy. Grade III/IV diastolic dysfunction (restrictive filling pattern), severely elevated filling pressures. Mildly increased left atrial size. Severe low gradient aortic valve stenosis, mean gradient 22.4 mmHg, BERNABE 0.72 cm squared. Peak velocity of 3.4 m/s with a peak gradient of 46 mmHg. Moderate aortic valve regurgitation. Moderate aortic valve regurgitation. Moderate aortic valve calcification. Mild tricuspid and pulmonic valve regurgitation. Estimated pulmonary artery peak systolic pressure 25 mmHg There is no pericardial effusion. There are no intracardiac masses. No similar previous studies are available for comparison Metabolic Hyperlipidemia Neuropsych Seizure Dementia Anesthetic Plan ASA status: 3 Anesthesia: General Medications/Allergies Home Medications Medication Instructions Recorded Confirmed Last Taken Type ascorbic acid (vitamin C) 250 mg 250 mg PO DAILY 02/22/23 04/10/23 04/09/23 History tablet aspirin 81 mg tablet,delayed 81 mg PO DAILY 02/22/23 04/10/23 04/09/23 History release cholecalciferol (vitamin D3) 10 10 mcg PO DAILY 02/22/23 04/10/23 04/09/23 History mcg (400 unit) capsule rosuvastatin 20 mg tablet (Crestor) 20 mg PO DAILY #90 tabs 03/26/23 04/10/23 04/09/23 Rx amiodarone 200 mg tablet (Pacerone) See Rx Instructions .Route 03/29/23 04/10/23 04/09/23 Rx .COMPLEX #180 tabs Allergies Allergy/AdvReac Type Severity Reaction Status Date / Time Penicillins Allergy Unknown Verified 04/10/23 09:33 Current Medications Generic Name Dose Route Start Last Admin Trade Name Truong PRN Reason Stop Dose Admin Sodium Chloride 1,000 mls @ 50 mls/hr 04/10/23 11:56 04/10/23 12:44 Sodium Chloride 0.9% IV 50 mls/hr .Q20H CECY Administration Ceftriaxone Sodium 1,000 mg/ 50 mls @ 100 mls/hr 04/10/23 12:30 04/10/23 13:40 Sodium Chloride IV Infused Q24H CECY Infusion Protocol Sodium Chloride 1,000 mls @ 30 mls/hr 04/10/23 15:15 04/10/23 15:12 Sodium Chloride 0.9% IV 04/11/23 15:14 30 mls/hr .Q24H CECY Administration PFSH Anesthesia Medical History (Updated 04/10/23 @ 13:36 by Kedar Zhou DO) Aortic stenosis Hx of coronary angiogram Intermittent atrial fibrillation Arrhythmia Syncope Wernicke's receptive aphasia Peripheral arterial disease Atherosclerosis of coronary artery of [place] heart without angina pectoris B12 deficiency Dementia Surgical History Hx of hysterectomy Hx of carpal tunnel repair Family History Mother Alzheimer disease Diabetes Brother No problems noted. Social History Smoking and tobacco/nicotine status: never used tobacco/nicotine Alcohol intake: never Substance/Drug Use: unknown Data Anesthesia 04/10/23 10:38 04/10/23 10:38 Short CBC 04/10/23 Range/Units 10:38 WBC 12.67 H (3.29-11.43) 10^3/uL Hgb 12.60 (11.27-16.99) g/dL Hct 40.1 (36-47) % MCV 96.4 (85-98) fl Plt Count 282 (157-399) 10^3/cmm Neut % (Auto) 79.3 % Neut # (Auto) 10.06 H (1.8-7.7) 10^3/uL BMP 04/10/23 10:38 Sodium 137 Potassium 4.0 Chloride 106 Carbon Dioxide 20 L BUN 16 Creatinine 1.8 H Glucose 112 Calcium 8.1 L Liver Function 04/10/23 Range/Units 10:38 Total Bilirubin 0.6 (0.15-1.2) mg/dL AST 11 (0-32) U/L ALT 12 (0-33) U/L Alkaline Phosphatase 121 H (35-105) U/L Albumin 3.5 (3.5-5.2) g/dL Urine 04/10/23 Range/Units 10:50 Urine Color Yellow (Yellow) Urine Appearance Cloudy A (CLEAR) Urine pH 8 H (5-7) Ur Specific [place] 1.015 (1.005-1.030) Urine Protein 1+ H (Negative) Urine Glucose (UA) 2+ H (Normal) Urine Ketones Negative (Negative) Urine Nitrate Positive H (Negative) Urine Bilirubin Neg (Negative) Ur Leukocyte Esterase Negative (Negative) Urine RBC 0-4 H (0-2) /hpf Urine WBC 0-4 H (0-5) /hpf Cardiac Studies: Echocardiogram 03/28/23 Cardiac Event Monitor 12/19/22
[2023-04-10] MEDS: ceFAZolin 2,000 MG in sodium chloride 0.9% (plus) 50 ML 100 MG IV (16:27)
--- NOTE | 2023-04-10 17:50 | P.PCN_ITS ---
PACU note Narrative: VSS, Good respiratory effort, report to C 13 CATAPULT OPERATOR Exam: awake
--- NOTE | 2023-04-10 17:50 | PM.PACU ---
PACU note Narrative: VSS, Good respiratory effort, report to PANEL EDGE PAINTER Exam: awake
--- NOTE | 2023-04-10 18:20 | P.BOP_ITS ---
Date of Procedure: 04/10/2023 Surgeon: Kedar Zhou DO Director Of Digital Technology(s): None Procedure(s) performed: Right hip trochanteric femur nail Findings of the procedure(s): Right hip intertrochanteric femur fracture patient went procedure as planned with no complications Estimated blood loss: 100 mL Specimen(s) removed: None Post-operative diagnosis: Right hip intertrochanteric femur fracture
--- NOTE | 2023-04-10 18:21 | PM.OP ---
Operative Report Date of procedure: April 10, 2023 Surgeon: Kedar Zhou DO Procedure: Preoperative diagnosis: Right hip intertrochanteric femur fracture Post-op diagnosis: right displaced intertrochanteric femur fracture Procedure done: Right intertrochanteric femur fracture ORIF with cephalomedullary?nail Implants: [place] gamma?nail?short?11 mm x 180 mm x 125 degree Lag screw 10.5 mm x [90 ]?mm Distal locking screw 5 mm x [ 37.5] mm Surgeon: Kedar Zhou DO Estimated blood loss: [ 100]mm IV fluids: See anesthesia record Urine output: See anesthesia record Complications: See operative report Findings: See operative report narrative Condition: stable Disposition: Floor Brief History: Patient sustained a fall and was found to have a right intertrochanteric hip fx.?Pt has?been unable to bear weight, right hip/lower extremity?shortened and externally rotated.? At this point time Pt?was admitted by the hospitalist team and orthopedics was consulted.? Refer to consult note for detailed HPI.? We talked about treatment options as far as nonoperative and operative intervention. Recommend Right hip?trochanteric femur?nail.? At this point time patient/ family would like to pursue surgical intervention for benefits of pain control and earlier mobilization.?? Patient/family understands the ins and outs of procedure, the risk benefits complication alternatives of surgical nonsurgical treatment options.? Understanding risk of surgery pt/family agrees to proceed with surgical intervention all questions answered.? Consent obtained. Procedure: Patient seen evaluated in the preoperative holding area.? Consent was obtained.? Correct extremity was then marked.? Once cleared by anesthesia and the hospitalist team patient was taken back to the operative suite.? Patient underwent anesthesia per the anesthesia department.? Once appropriately anesthetized patient was placed on a fracture [place] table.? Patient was appropriately secured to the bed.? All bony prominences were well-padded.? At this point time patient received appropriate preoperative antibiotics.? Final timeout was performed.? Prior to beginning surgery a standard closed reduction maneuver was placed on the [place] table and large C-arm was brought in.? After performing a closed reduction maneuver there was able to achieve satisfactory reduction of right intertrochanteric femur fracture.? Fracture site did not extend into the subtrochanteric region as result plan was for a?short?nail.?? This point time the right lower extremity was then prepped and draped in standard orthopedic fashion. A standard longitudinal incision was made just proximal to the greater?trochanter roughly 4 cm in length sharp scalpel vision was made through skin and subcutaneous tissue.? I then utilized a blunt Vincent to split? fascia and mobilized directly down to the greater?trochanter.? I then inserted my starting guidewire which was placed appropriate starting position the tip of the greater?trochanter.? This was advanced in AP and lateral films to be in center center position and advanced to the level lesser?trochanter.? This was confirmed to be in center center position on AP and lateral imaging.? Once this was done I then introduced my opening reamer which was then subsequently guide pin removed.? I selected a 11 mm x 180 mm x 125 degree. At this point time the?nail?was then loaded onto the [employer] gamma?trochanteric?nail?guide.? This was placed within the canal and confirmed with XR and the setscrew was then gently placed not locked.? The?nail?was then impacted to appropriate depth .? At this point time I then inserted my lag screw guide and subsequently made a small incision through skin and subcutaneous tissue splitting the IT band longitudinally and the guide was placed directly onto bone.? Next I then subsequently placed the guidewire in center center position in the head with an appropriate tip to apex distance this was confirmed with multiple orthogonal images.? Once I was satisfied with my planned lag screw placement I then measured which was? [ 90]?mm.? I then set my cannulated drill and subsequently reamed this into the head at appropriate depth.? I then had my rep open the 10.5 mm x [ 90] mm lag screw which was then opened on the back table and subsequently screwed into place over my cannulated drill guide.? This was placed with excellent tip to apex distance.? Next I then utilized the compressing device and subsequently compressed my fracture after I let off traction.? This had excellent fracture compression and opposition and closing down to my fracture line.? Next I then locked the?nail?by locking my setscrew.? This point time the guidewire as well as the sleeve was then removed.? Next I plan for statically locking the?nail?distally.? This triple sleeve was then placed a small stab incision was made blunt dissection directly down to bone and the guide sleeve was placed and locked directly onto the bone.? I then inserted the drill bit and subsequently drilled bicortically measured appropriate length screw and then placed a [ 37.5]?mm distal interlocking screw and had excellent fixation was appropriate length.? This point time is completed my construct I remove the outer jig and took final images of AP and lateral of the right intertrochanteric femur fracture which showed stable reduction and stable fixation.? Incision was then thoroughly irrigated.? Hemostasis was maintained with electrocautery.? I then once again thoroughly irrigated the incisions and then subsequently closed in layered fashion of 0 Vicryl 2-0 Vicryl and panda.? Silverlon dressings applied.? Patient was then awakened from anesthesia transported onto the hospital bed and taken to PACU in stable condition.? Patient tolerated procedure without complications. Disposition: Patient taken to PACU in stable condition.? Postoperatively,? Patient to receive appropriate discharge instructions as well as pain medication DVT prophylaxis postoperatively.? Patient?will be allowed weightbearing as tolerated right lower extremity.? Will receive appropriate postoperative antibiotics, PT/OT.? Patient to follow-up in the orthopedic office in 2 weeks.? Patients family understands and agrees with current plan.? All questions answered.
[2023-04-10] MEDS: TRAMadol 50 mg Tablet PO (21:52)
[2023-04-11] VITALS (13 sets, daily range): BP systolic 82–111; BP diastolic 47–71; PULSE 66–82; RESP 14–20; TEMP 36.4–36.8; O2SAT 95–98
[2023-04-11] MEDS: tranexamic acid 1,000 MG/100 ML PREMIX 600 MG IV (01:28)
[2023-04-11] MEDS: ceFAZolin 2,000 MG in sodium chloride 0.9% (plus) 50 ML 100 MG IV ×3 (01:52→15:10)
[2023-04-11] MEDS: HYDROmorphone 1 mg/mL INJ 1 mL 0.5 MG IVP ×3 (02:14→13:47)
[2023-04-11] MEDS: morphine 4 mg/mL SDV 1 mL 2 MG IVP (05:02)
[2023-04-11 05:09] LABS: Basophils # 0.1 10^3/uL (0.0-0.1); Basophils % 0.3 %; Hematocrit 32.1 % (36-47); Lymphocytes % 5.2 %; Mean Corpuscular HGB Conc 31.5 g/dL (30-55); Mean Corpuscular Hemoglobin 30.5 pg (27-33); Mean Platelet Volume 10.2 fL (7.4-10.4); Monocytes # 1.8 10^3/uL (0.2-0.9); Monocytes % 8.9 %; Neutrophils # 16.74 10^3/uL (1.8-7.7); Nucleated Red Blood Cells % 0 %; Platelet Count 271 10^3/cmm (157-399); Red Blood Count 3.31 10^6/uL (3.85-5.65); Red Cell Distribution Width 13.4 % (12.1-15.1)
[2023-04-11 05:58] LABS: Alanine Aminotransferase 10 U/L (0-33); Albumin Level 3.3 g/dL (3.5-5.2); Alkaline Phosphatase 106 U/L (35-105); Aspartate Amino Transferase 12 U/L (0-32); Blood Urea Nitrogen 15 mg/dL (8-23); Calcium 8.2 mg/dL (8.5-10.5); Carbon Dioxide 20 mmol/L (22-29); Chloride 109 mmol/L (98-107); Globulin 1.7 g/dL (1.3-4.6); Glucose 138 mg/dL (65-115); Osmolality Calculated 293 mOsm/kg (285-295); Sodium 140 mmol/L (136-145); Total Bilirubin 0.4 mg/dL (0.15-1.2)
[2023-04-11] MEDS: enoxaparin 30 mg/0.3 mL Syringe SUBCUT (06:13)
--- NOTE | 2023-04-11 06:42 | ANE.PACU2 ---
Inpatient post-anesthesia follow up: Airway intact: Yes Vital signs: Temperature 97.8 F Pulse Rate 74 Respiratory Rate 18 Blood Pressure 107/71 Pulse Oximetry 95 Oxygen Delivery Me thod Room Air Oxygen Flow Rate Fraction of Inspir ed Oxygen Hydration adequate: Yes Nausea and vomiting: No Pain level: 2 Mental status: Baseline
[2023-04-11] MEDS: multivitamin therapeutic Tablet 1 TAB PO (08:46)
[2023-04-11] MEDS: iron polysaccharide complex 150 mg Capsule PO ×2 (08:46→17:17)
[2023-04-11] MEDS: pantoprazole DR 40 mg Tablet PO (08:46)
[2023-04-11] MEDS: calcium carb-vit d 600mg/400unit 1 Tablet 1 EACH PO ×2 (08:46→17:17)
[2023-04-11] MEDS: aspirin 81 mg EC Tablet PO (08:46)
[2023-04-11] MEDS: amiodarone 200 mg Tablet PO ×2 (08:46→17:18)
[2023-04-11] MEDS: docusate sodium 100 mg Capsule PO ×2 (08:46→17:17)
[2023-04-11] MEDS: sodium chloride 0.9% 1,000 ML 50 ML IV (08:47)
[2023-04-11] MEDS: TRAMadol 50 mg Tablet PO ×2 (08:49→20:52)
--- NOTE | 2023-04-11 09:00 | XR_ITS ---
WS: [id number] Right hip, 2 views, AP pelvis, 04/11/2023 Clinical Data: Status post trochanteric nail Comparison: Right hip and pelvis, 04/10/2023 Findings: The intertrochanteric fracture of the right hip is repaired with an oblique femoral neck nail and a p roximal intramedullary femoral chidi. The left hip and pelvis are unremarkable. There are surgical panda in the lateral subcutaneous tiss ue of the right pelvis Impression: Internal fixation of intertrochanteric right hip fracture.
--- NOTE | 2023-04-11 09:17 | P.PN_ITS ---
Documented by User: MARVIN Ferrer [email or web address] 04/11/23 09:33 Subjective 2 Subjective: Patient resting in bed this morning on room air, son noted to be at bedside. Ms. Malik noted to have right hip pain when assessing her this morning. Medications: Reviewed: Yes Vitals/I&O/Wt Last Vital Signs Temp 98 F 04/11/23 08:00 Pulse 70 04/11/23 08:00 Resp 16 04/11/23 08:49 BP 100/61 04/11/23 08:00 Pulse Ox 98 04/11/23 08:49 O2 Del Method Room Air 04/11/23 03:27 04/10/23 04/11/23 04/11/23 22:59 06:59 14:59 Intake Total 50 / 100 150 / 250 1651.5 / 1651.5 Output Total 350 / 350 200 / 550 Balance -300 / -250 -50 / -300 1651.5 / 1651.5 Weight last 48 hrs Weight 125 lb 2 oz Weight 129 lb 1.6 oz Weight 160 lb Physical Exam 2 Narrative: General exam is a white female, who can say yes or no but has trouble carrying on an extended conversation. Obviously confused. Skin no rash, bruise noted likely from Lovenox shot on abdomen Neuro no obvious focal deficits HEENT: Atraumatic normocephalic. Pupils equally round. Oropharynx clear Neck is supple. No lymphadenopathy. No thyromegaly. Cardiovascular regular rate and rhythm with occasional premature beat and a 3/6 systolic murmur heard best over her aortic area Lungs clear Abdomen is soft, no obvious organomegaly. exams deferred, Johnson noted Extremities no cyanosis clubbing or edema. Right hip dressing intact. Distal cap refill intact. Urinary Catheter Management: Johnson: Cath Placed During This Visit: yes Reason for Continuing Indwelling Catheter: Other Urinary Catheter Date of Insertion: 04/10/23 Urinary Catheter Time of Insertion: 10:40 Data 04/11/23 05:00 04/11/23 05:00 Micro: Microbiology 04/10/23 10:50 Urine Culture - Preliminary Urine,Clean Catch Gram Negative Rods A&P Assessment and plan (1) Hip fracture, right: Patient presents with right hip fracture after a fall. It is not known if this was a syncopal event. She does have past history of syncopal events as well as atrial fibrillation. Continue Telemetry Pain control Orthopedic consulted. Physical Therapy today. (2) Fall: Status post fall Chest x-ray, head CT, knee x-ray without any obvious trauma on 04/09/23. High fall precautions (3) Abnormal urinalysis: Cannot rule out UTI with her urinalysis with positive nitrates and bacteria Continue Rocephin Urine culture pending. (4) Aortic stenosis: Has known severe aortic stenosis Family is not sure how to approach this currently. They are to keep cardiology follow-up. Considering her severe dementia they are not sure if they want valve replacement. (5) Dementia: Severe underlying dementia, which may complicate her recovery significantly. (6) Intermittent atrial fibrillation: Patient with history of intermittent atrial fibrillation Continue amiodarone Not candidate for anticoagulation secondary to high risk for falls Continue aspirin Plan Other medical problems as outlined in past medical history Full code DVT Lovenox Coding Level of Care Code 04805 Diagnoses Hip fracture, right S72.001A Fall W19.XXXA Abnormal urinalysis R82.90 Aortic stenosis I35.0 Dementia F03.90 Intermittent atrial fibrillation I48.0 Time Spent (min) 25 Documented by User: Alan Zapata MD 04/11/23 09:47 Subjective 2 Subjective: Patient resting in bed this morning on room air, son noted to be at bedside. Ms. Malik noted to have right hip pain when assessing her this morning. Son believes she is doing okay after surgery. Patient cannot give adequate history. Physical Exam 2 Narrative: General exam is a white female, who can say yes or no but has trouble carrying on an extended conversation. Obviously confused. Skin no rash, bruise noted likely from Lovenox shot on abdomen Neuro no obvious focal deficits, confused Neck is supple. No lymphadenopathy. No thyromegaly. Cardiovascular regular rate and rhythm with occasional premature beat and a 3/6 systolic murmur heard best over her aortic area Lungs clear Abdomen is soft, no obvious organomegaly. exams deferred, Johnson noted Extremities no cyanosis clubbing or edema. Right hip dressing intact. Dressing is clean and dry. Distal cap refill intact. Urinary Catheter Management: Johnson: Cath Placed During This Visit: yes Data 04/11/23 05:00 04/11/23 05:00 A&P Assessment and plan (1) Hip fracture, right: Patient presents with right hip fracture after a fall. It is not known if this was a syncopal event. She does have past history of syncopal events as well as atrial fibrillation. Continue Telemetry Pain control Orthopedic consulted. Physical Therapy today. She is postoperative day #1 status post ORIF (2) Fall: Status post fall Chest x-ray, head CT, knee x-ray without any obvious trauma on 04/09/23. Fall precautions (3) Abnormal urinalysis: (4) Aortic stenosis: (5) Dementia: (6) Intermittent atrial fibrillation: Patient with history of intermittent atrial fibrillation Continue amiodarone Not candidate for anticoagulation secondary to high risk for falls Continue aspirin Telemetry Plan Chronic kidney disease with some acute kidney insufficiency. Will obtain a BMP tomorrow along with CBC. Increase fluids to 100 cc an hour at least for daytime hours. Reevaluate p.o. intake. Avoid renal toxic medication. Other medical problems as outlined in past medical history Full code DVT Lovenox Attestations 2 Medical Necessity Statement*: Needs continued hospital stay for close monitoring following hip fracture surgery Diagnoses Hip fracture, right S72.001A Fall W19.XXXA Abnormal urinalysis R82.90 Aortic stenosis I35.0 Dementia F03.90 Intermittent atrial fibrillation I48.0 Time Spent (min) 25
--- NOTE | 2023-04-11 10:55 | PC.CHAP ---
Pastoral Care Encounter/Spiritual Assessment Type of Contact [] Declined screen operator visit [] Patient/Family/Request visit [] Outpatient visit [] Follow-up visit [] Physician referral [] Code/Alert [x] Routine visit [] Staff referral [] Actively dying [] Patient sleeping [] Family support [] [] Out of room [] Palliative care [] [x] Receiving care in room [] Pre-surgical visit [] Trauma [] Long length of stay [] ICU visit [] Other: Relational/Emotional Strength [x] Patient feels connected with others/family/visitors/staff [] Distress [] Loneliness/isolation [] Abandonment Spirituality of Patient [x] Person of Barb [] Attends Orthodoxy of their Barb [x] Believes in Prayer [] Reads Bible or Jainism materials [] There are Spiritual issues to be addressed Director [employer] Interventions [x] Prayer [x] Active listening [x] Non-anxious presence [x] Spiritual/emotional support [] Crisis/trauma care [x] Spiritual counseling [] Bereavement support [] Provided bereavement packet [] Provided Bible/devotional materials [] Provided toy/stuffed animal, coloring book to patient or family member [] Provided Communion [] Anointing/[place] [] Salvation [x] Completed spiritual assessment [] Other: Impact on Illness or Injury [] Angry [] Fearful [] Anxious [] Often cries [] Exhaustion [] Unable to work [] Unable to attend tenriism [] Unable to walk/stand [] Unable to read [] Unable to drive [] Unable to eat/drink [] Unable to sleep [] Unable to be with family [] Patient intubated [] Other: Summary senior heart and other issues +1 well rehab at home family care well be going home negative Time spent with patient 10 mins
[2023-04-11] MEDS: cefTRIAXone 1,000 MG in sodium chloride 0.9% (plus) 50 ML 100 MG IV (11:47)
[2023-04-11] MEDS: oxyCODONE 5 mg IR Tab/Cap PO (11:47)
--- NOTE | 2023-04-11 13:01 | P.PN_ITS ---
Subjective 2 Subjective: Patient seen and examined postoperative day 1. At this point in time patient has gotten up and work with therapy. Son at bedside. No acute issues overnight. Vitals/I&O/Wt Last Vital Signs Temp 98.2 F 04/11/23 12:00 Pulse 77 04/11/23 12:00 Resp 19 H 04/11/23 12:00 BP 111/65 04/11/23 12:00 Pulse Ox 97 04/11/23 12:00 O2 Del Method Room Air 04/11/23 12:00 04/10/23 04/11/23 04/11/23 22:59 06:59 14:59 Intake Total 50 / 100 150 / 250 1829.833 / 1829.833 Output Total 350 / 350 200 / 550 Balance -300 / -250 -50 / -300 1829.833 / 1829.833 Weight last 48 hrs Weight 125 lb 2 oz Weight 129 lb 1.6 oz Weight 160 lb Physical Exam 2 Narrative: Examination of the right hip demonstrates dressings clean dry and intact, normal postoperative hip swelling, negative pain with logroll,able to wiggle toes Urinary Catheter Management: Johnson: Cath Placed During This Visit: yes, but has since been removed by the nurse Reason for Continuing Indwelling Catheter: Other Urinary Catheter Date of Insertion: 04/10/23 Urinary Catheter Time of Insertion: 10:40 Date Urinary Catheter Removed: 04/11/23 Time Urinary Catheter Discontinued: 18:14 Data 04/14/23 03:40 04/14/23 03:40 Micro: Microbiology 04/10/23 10:50 Urine Culture - Preliminary Urine,Clean Catch Gram Negative Rods Xray Ortho: My impression: Postoperative x-rays demonstrate stable ORIF right hip intertrochanteric femur fracture A&P Assessment and plan (1) Closed intertrochanteric fracture of right femur: Plan Pain control DVT prophylaxis Weight-bear as tolerated right lower extremity PT/OT Postoperative antibiotics Labs reviewed Postoperative x-rays reviewed Orthopedics will continue to follow Attestations 2 Medical Necessity Statement*: Ongoing care right hip intertrochanteric femur fracture ORIF Coding Level of Care Code Acute Code for Chg Fwd Diagnoses Closed intertrochanteric fracture of right femur S72.141A
[2023-04-11] MEDS: atorvastatin 40 mg Tablet PO (17:18)
[2023-04-11] MEDS: mupirocin oint 22 gm 1 APPLIC NASAL (17:19)
[2023-04-11] MEDS: chlorhexidine gluconate 0.12% Btl 473 mL 30 ML MUCOUS MEM (17:20)
[2023-04-11] MEDS: sodium chloride 0.9% 1,000 ML 75 ML IV (22:09)
[2023-04-12] VITALS (13 sets, daily range): BP systolic 84–132; BP diastolic 43–71; PULSE 66–93; RESP 14–18; TEMP 36.6–37.6; O2SAT 93–99
[2023-04-12] MEDS: enoxaparin 30 mg/0.3 mL Syringe SUBCUT (06:30)
--- NOTE | 2023-04-12 09:19 | PC.SOCIAL ---
IMM Update Pg. of IMM updated and reviewed with patient's son, who verbalized understanding. Copy provided.
[2023-04-12] MEDS: docusate sodium 100 mg Capsule PO ×2 (09:34→17:54)
[2023-04-12] MEDS: calcium carb-vit d 600mg/400unit 1 Tablet 1 EACH PO ×2 (09:34→17:53)
[2023-04-12] MEDS: iron polysaccharide complex 150 mg Capsule PO ×2 (09:34→17:54)
[2023-04-12] MEDS: multivitamin therapeutic Tablet 1 TAB PO (09:35)
[2023-04-12] MEDS: aspirin 81 mg EC Tablet PO (09:35)
[2023-04-12] MEDS: pantoprazole DR 40 mg Tablet PO (09:35)
[2023-04-12] MEDS: amiodarone 200 mg Tablet PO ×2 (09:35→17:54)
[2023-04-12] MEDS: oxyCODONE 5 mg IR Tab/Cap PO (09:35)
[2023-04-12 11:13] LABS: Basophils % 0.3 %; Eosinophils % 0.1 %; Hematocrit 25.8 % (36-47); Lymphocytes # 1.2 10^3/uL (0.8-4.8); Lymphocytes % 8.2 %; Mean Corpuscular HGB Conc 32.2 g/dL (30-55); Mean Corpuscular Hemoglobin 30.9 pg (27-33); Mean Corpuscular Volume 95.9 fl (85-98); Mean Platelet Volume 10.9 fL (7.4-10.4); Monocytes # 1.5 10^3/uL (0.2-0.9); Monocytes % 10.8 %; Neutrophils # 11.17 10^3/uL (1.8-7.7); Neutrophils % 80.1 %; Nucleated Red Blood Cells % 0 %; Platelet Count 222 10^3/cmm (157-399); Red Blood Count 2.69 10^6/uL (3.85-5.65); Red Cell Distribution Width 13.8 % (12.1-15.1); White Blood Count 13.94 10^3/uL (3.29-11.43)
[2023-04-12 11:27] LABS: Blood Urea Nitrogen 15 mg/dL (8-23); Carbon Dioxide 21 mmol/L (22-29); Chloride 103 mmol/L (98-107); Glucose 97 mg/dL (65-115); Osmolality Calculated 275 mOsm/kg (285-295); Sodium 132 mmol/L (136-145)
[2023-04-12 11:38] LABS: Anion Gap 12.2 (5-19); Potassium 4.2 mmol/L (3.5-5.1)
[2023-04-12] MEDS: cefTRIAXone 1,000 MG in sodium chloride 0.9% (plus) 50 ML 100 MG IV (11:54)
--- NOTE | 2023-04-12 12:04 | P.DS_ITS ---
Discharge Providers Date of Admission: 04/10/23 11:56 Date of Discharge: April 12, 2023 Attending Provider at Admission: Alan Zapata MD Attending Provider at Discharge: Alan Zapata MD Primary Care Provider: ALEXX Turpin Diagnoses at Discharge Discharge Diagnosis (1) Hip fracture, right: Status: Acute (2) Fall: Status: Acute (3) Abnormal urinalysis: Status: Acute (4) Aortic stenosis: Status: Acute (5) Dementia: Status: Acute (6) Intermittent atrial fibrillation: Status: Acute Reason for Visit Reason for Visit: left hip pain post fall Hospital Course Hospital Course Daisy is a 77-year-old white female with history of dementia and severe aortic stenosis who presented with a fall. She was found to have a hip fracture on the right. Orthopedics was consulted, and hip fracture repair, ORIF occurred without complication. Postoperatively the patient did well. At this point she will be discharged home. She is stable at this time. Home health with home physical therapy was arranged. Family was not interested in custodial placement. She will complete at least 4 weeks of Eliquis p.o., stop her aspirin during that time and restart her aspirin following. She will have a CBC and fol low-up with her primary care provider in 3 to 5 days. She will finish a month of iron. Discharge hemoglobin was 8.3. She will complete some cefdinir for UTI. She had no evidence of bleeding at time of discharge, stable vital signs, stable kidney function although she has chronic kidney disease. Instructed family to encourage p.o. intake. They are considering hospice in the future secondary to her severe aortic stenosis and severe dementia. Physical Exam Narrative: General exam no distress Neck is supple Cardiovascular regular rate and rhythm with a 3/6 systolic murmur Lungs clear Abdomen soft Extremities no cyanosis clubbing edema, hip fracture site with dressing clean and dry Urinary Catheter Management: Johnson: Cath Placed During This Visit: yes, but has since been removed by the nurse Reason for Continuing Indwelling Catheter: Decision to DC Catheter Urinary Catheter Date of Insertion: 04/10/23 Urinary Catheter Time of Insertion: 10:40 Date Urinary Catheter Removed: 04/11/23 Time Urinary Catheter Discontinued: 18:14 Discharge Data Studies Completed and Pending Completed Studies During Hospitalization Category Date Time Status CT head wo con* [id number] Stat Cat Scan 04/10/23 10:04 Completed XR chest 1V portable [id number] Stat Exams 04/10/23 09:52 Completed XR femur RT min 2V* [id number] Stat Exams 04/10/23 10:04 Completed XR hip RT 2-3V wo/w pel* [id number] Routine Exams 04/10/23 Completed XR hip RT 2-3V wo/w pel* [id number] Routine Exams 04/11/23 09:00 Completed XR hip RT 2-3V wo/w pel* [id number] Stat Exams 04/10/23 Completed XR knee RT 3V* [id number] Stat Exams 04/10/23 10:04 Completed Pending at discharge Category Date Time Status Type and Screen Routine Lab 04/10/23 15:36 Uncollected Radiology Impressions Head CT 04/10/23 10:04 IMPRESSION: 1. No evidence of acute intracranial abnormality. No evidence of acute infarction, hemorrhage, or mass. 2. Atrophy and microvascular disease. Laboratory Results WBC 13.94 10^3/uL (3.29-11.43) H 04/12/23 10:45 RBC 2.69 10^6/uL (3.85-5.65) L 04/12/23 10:45 Hgb 8.30 g/dL (11.27-16.99) L 04/12/23 10:45 Hct 25.8 % (36-47) L 04/12/23 10:45 MCV 95.9 fl (85-98) 04/12/23 10:45 MCH 30.9 pg (27-33) 04/12/23 10:45 MCHC 32.2 g/dL (30-55) 04/12/23 10:45 RDW 13.8 % (12.1-15.1) 04/12/23 10:45 Plt Count 222 10^3/cmm (157-399) 04/12/23 10:45 MPV 10.9 fL (7.4-10.4) H 04/12/23 10:45 Neut % (Auto) 80.1 % 04/12/23 10:45 Lymph % (Auto) 8.2 % 04/12/23 10:45 [place] % (Auto) 10.8 % 04/12/23 10:45 Eos % (Auto) 0.1 % 04/12/23 10:45 Baso % (Auto) 0.3 % 04/12/23 10:45 Neut # (Auto) 11.17 10^3/uL (1.8-7.7) H 04/12/23 10:45 Lymph # (Auto) 1.2 10^3/uL (0.8-4.8) 04/12/23 10:45 [place] # (Auto) 1.5 10^3/uL (0.2-0.9) H 04/12/23 10:45 Eos # (Auto) 0.0 10^3/uL (0.0-0.8) 04/12/23 10:45 Baso # (Auto) 0.0 10^3/uL (0.0-0.1) 04/12/23 10:45 Nucleated RBC % (auto) 0 % 04/12/23 10:45 Nucleated RBCs # 0.0 /100WBC 04/12/23 10:45 Sodium 132 mmol/L (136-145) L 04/12/23 10:45 Potassium 4.2 mmol/L (3.5-5.1) 04/12/23 10:45 Chloride 103 mmol/L (98-107) 04/12/23 10:45 Carbon Dioxide 21 mmol/L (22-29) L 04/12/23 10:45 Anion Gap 12.2 (5-19) 04/12/23 10:45 BUN 15 mg/dL (8-23) 04/12/23 10:45 Creatinine 1.9 mg/dL (0.5-0.9) H 04/12/23 10:45 GFR Calculation Not Reportable 04/12/23 10:45 Glucose 97 mg/dL (65-115) 04/12/23 10:45 Calculated Osmolality 275 mOsm/kg (285-295) L 04/12/23 10:45 Calcium 8.0 mg/dL (8.5-10.5) L 04/12/23 10:45 Total Bilirubin 0.4 mg/dL (0.15-1.2) 04/11/23 05:00 AST 12 U/L (0-32) 04/11/23 05:00 ALT 10 U/L (0-33) 04/11/23 05:00 Alkaline Phosphatase 106 U/L (35-105) H 04/11/23 05:00 Total Protein 5.0 g/dL (6.6-8.7) L 04/11/23 05:00 Albumin 3.3 g/dL (3.5-5.2) L 04/11/23 05:00 Globulin 1.7 g/dL (1.3-4.6) 04/11/23 05:00 Urine Color Yellow (Yellow) 04/10/23 10:50 Urine Appearance Cloudy (CLEAR) A 04/10/23 10:50 Urine pH 8 (5-7) H 04/10/23 10:50 Ur Specific [place] 1.015 (1.005-1.030) 04/10/23 10:50 Urine Protein 1+ (Negative) H 04/10/23 10:50 Urine Glucose (UA) 2+ (Normal) H 04/10/23 10:50 Urine Ketones Negative (Negative) 04/10/23 10:50 Urine Blood 2+ (Negative) H 04/10/23 10:50 Urine Nitrate Positive (Negative) H 04/10/23 10:50 Urine Bilirubin Neg (Negative) 04/10/23 10:50 Prot Sulfosalicylic Acd Positive (Negative) 04/10/23 10:50 Urine Urobilinogen Norm mg/dL (Negative) 04/10/23 10:50 Ur Leukocyte Esterase Negative (Negative) 04/10/23 10:50 Urine RBC 0-4 /hpf (0-2) H 04/10/23 10:50 Urine WBC 0-4 /hpf (0-5) H 04/10/23 10:50 Ur Squamous Epith Cells None /hpf (0-5) 04/10/23 10:50 Amorphous Sediment 1+ /hpf 04/10/23 10:50 Urine Bacteria 3+ /hpf (NONE) H 04/10/23 10:50 Urine Mucus None /hpf 04/10/23 10:50 Blood Type O Negative 04/10/23 15:45 Rho(D) Type Negative 04/10/23 15:45 Antibody Screen Negative 04/10/23 15:45 Vitals Last Vital Signs Temp 98.5 F 04/12/23 08:00 Pulse 86 04/12/23 08:00 Resp 14 04/12/23 09:35 BP 95/58 04/12/23 08:00 Pulse Ox 93 04/12/23 09:35 O2 Del Method Room Air 04/12/23 03:21 Discharge Plan Discharge Patient Disposition: Home Health Service Condition: Stable Prescriptions: New tramadol 50 mg Tablet 50 mg PO Q4H PRN (Reason: Mild Pain) Qty: 20 0RF cefdinir 300 mg capsule 300 mg PO BID 7 Days Qty: 14 0RF polysaccharide iron complex [Ferrex 150] 150 mg iron Capsule 150 mg PO BIDWM Qty: 60 0RF Eliquis 2.5 mg tablet 2.5 mg PO BID Qty: 60 0RF Continued ascorbic acid (vitamin C) 250 mg tablet 250 mg PO DAILY cholecalciferol (vitamin D3) 10 mcg (400 unit) capsule 10 mcg PO DAILY rosuvastatin [Crestor] 20 mg tablet 20 mg PO DAILY Qty: 90 5RF amiodarone [Pacerone] 200 mg Tablet See Rx Instructions .ROUTE .COMPLEX Qty: 180 0RF Rx Instructions: 400 mg twice daily for 13 more doses (6 more days), then decrease to 200 mg twice daily Discontinued aspirin 81 mg tablet,delayed release (DR/EC) 81 mg PO DAILY Discharge Orders: Discharge Order (Routine); Ordered 04/12/23 Ordered By: Alan Zapata Other Ambulatory Orders: DME: Hospital Bed (Order) Location: None Selected Ordered By: Alan Zapata DME: Wheelchair (Order) Location: None Selected Ordered By: Alan Zapata Referrals: Abraham Cabral FNP [Primary Care Provider] - 4-7 days (CBC on follow-up) Discharge Diet: Usual diet Discharge Activity: Limit activity as instructed Patient Instructions: Opioid Safety Activity Restrictions/Additional Instructions: Postsurgical instructions per orthopedics CBC on follow-up with primary care provider 3 to 5 days Discontinue aspirin, initiate Eliquis 2.5 mg a day for 4 weeks. After treatment is complete that can resume aspirin. Cefdinir for 7 days Return for any concerns Home health on discharge Follow-up with Dr. Zhou as per his instruction. Discharge Attestations Time Spent in Discharge Care*: greater than 30 min Quality Metrics Clinical Quality Measures [ No reported AMI, CVA or VTE this stay] Coding Level of Care Code 49879 Total time (in minutes) for Discharge: 36 Diagnoses Hip fracture, right S72.001A Fall W19.XXXA Abnormal urinalysis R82.90 Aortic stenosis I35.0 Dementia F03.90 Intermittent atrial fibrillation I48.0
[2023-04-12] MEDS: sodium chloride 0.9% 250 ML IV ×2 (12:46→15:22)
--- NOTE | 2023-04-12 14:01 | P.PN_ITS ---
Subjective 2 Subjective: Patient seen and examined prior to discharge she is doing well she is progressed appropriately with therapy spoke with family as well as therapy and plan for home with home health care discharge today. Labs reviewed hemoglobin stable. Patient follow-up with me in the office in 2 weeks Vitals/I&O/Wt Last Vital Signs Temp 98.1 F 04/12/23 12:00 Pulse 66 04/12/23 12:00 Resp 18 04/12/23 12:00 BP 89/53 04/12/23 12:00 Pulse Ox 96 04/12/23 12:00 O2 Del Method Room Air 04/12/23 03:21 04/11/23 04/12/23 04/12/23 22:59 06:59 14:59 Intake Total 1205.417 / 3275.250 1198.75 / 1198.75 Balance 1205.417 / 3275.250 1198.75 / 1198.75 Weight last 48 hrs Weight 134 lb Weight 125 lb 2 oz Physical Exam 2 Narrative: Examination of the right hip demonstrates dressings clean dry and intact, normal postoperative hip swelling negative pain with logroll,able to wiggle toes Urinary Catheter Management: Johnson: Cath Placed During This Visit: yes, but has since been removed by the nurse Reason for Continuing Indwelling Catheter: Decision to DC Catheter Urinary Catheter Date of Insertion: 04/10/23 Urinary Catheter Time of Insertion: 10:40 Date Urinary Catheter Removed: 04/11/23 Time Urinary Catheter Discontinued: 18:14 Data 04/12/23 10:45 04/12/23 10:45 Micro: Microbiology 04/10/23 10:50 Urine Culture - Final Urine,Clean Catch Escherichia coli A&P Assessment and plan (1) Closed intertrochanteric fracture of right femur: Plan Plan for discharge today Pain control DVT prophylaxis Weight-bear as tolerated right lower extremity PT/OT Labs reviewed Postoperative x-rays reviewed Stable for discharge from orthopedic standpoint, orthopedic surgery team will sign off at this time follow peripherally patient follow-up with me in the office in 2 weeks discharge instructions are in patient's chart. Attestations 2 Medical Necessity Statement*: Ongoing care right hip fracture ORIF Coding Level of Care Code Acute Code for Chg Fwd Diagnoses Closed intertrochanteric fracture of right femur S72.141A Time Spent (min) 20
[2023-04-12] MEDS: chlorhexidine gluconate 0.12% Btl 473 mL 30 ML MUCOUS MEM (17:52)
[2023-04-12] MEDS: mupirocin oint 22 gm 1 APPLIC NASAL (17:52)
[2023-04-12] MEDS: atorvastatin 40 mg Tablet PO (17:53)
[2023-04-12 19:10] LABS: Hematocrit 24.1 % (36-47)
[2023-04-13] VITALS (10 sets, daily range): BP systolic 75–104; BP diastolic 47–64; PULSE 56–128; RESP 16–21; TEMP 36.3–37.6; O2SAT 95–100
[2023-04-13] MEDS: sodium chloride 0.9% 100 mL Bag 50 ML IV (00:28)
[2023-04-13 05:33] LABS: Basophils % 0.3 %; Eosinophils % 0.1 %; Hematocrit 27.3 % (36-47); Lymphocytes # 1.2 10^3/uL (0.8-4.8); Lymphocytes % 11.9 %; Mean Corpuscular HGB Conc 31.9 g/dL (30-55); Mean Corpuscular Hemoglobin 28.4 pg (27-33); Mean Corpuscular Volume 89.2 fl (85-98); Mean Platelet Volume 10.9 fL (7.4-10.4); Monocytes # 1.1 10^3/uL (0.2-0.9); Monocytes % 10.6 %; Neutrophils # 7.84 10^3/uL (1.8-7.7); Neutrophils % 76.6 %; Nucleated Red Blood Cells % 0 %; Platelet Count 174 10^3/cmm (157-399); Red Blood Count 3.06 10^6/uL (3.85-5.65); Red Cell Distribution Width 19.2 % (12.1-15.1); White Blood Count 10.23 10^3/uL (3.29-11.43)
[2023-04-13] MEDS: sodium chloride 0.9% 1,000 ML 75 ML IV (05:39)
[2023-04-13 05:56] LABS: Blood Urea Nitrogen 14 mg/dL (8-23); Calcium 7.7 mg/dL (8.5-10.5); Carbon Dioxide 20 mmol/L (22-29); Chloride 105 mmol/L (98-107); Glucose 108 mg/dL (65-115); Osmolality Calculated 279 mOsm/kg (285-295); Sodium 134 mmol/L (136-145)
--- NOTE | 2023-04-13 08:46 | ECG_ITS ---
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 Measurements Intervals [place] Rate: 126 P: 0 HI: 0 QRS: -5 QRSD: 91 T: 0 QT: 237 QTc: 344 Interpretive Statements ATRIAL FIBRILLATION WITH RAPID VENTRICULAR RESPONSE INFERIOR MYOCARDIAL INFARCTION , PROBABLY OLD [40+ ms Q WAVE AND/OR ST/T ABNORMALITY IN II/aVF] Compared to ECG 04/10/2023 10:25:06 Myocardial infarct finding now present Sinus bradycardia no longer present Electronically Signed On 04-14-2023 16:27:17 SYSTEMS ADMIN by Piero Ro M.D. [id number]
--- NOTE | 2023-04-13 08:47 | XRR_ITS ---
PROCEDURE INFORMATION: Exam: XR Chest Exam date and time: 04/13/2023 11:58 AM Age: 77 years old Clinical indication: Condition or disease; Patient HX: AMS; Hypotension TECHNIQUE: Imaging protocol: Radiologic exam of the chest. Views: 1 view. COMPARISON: CR XR chest 1V portable [id number] 04/10/2023 9:53 AM FINDINGS: Lungs: Unremarkable. No consolidation. Pleural spaces: Unremarkable. No pleural effusion. No pneumothorax. Heart/Mediastinum: Unremarkable. No cardiomegaly. Diaphragm: Unchanged mild elevation of the right hemidiaphragm. Bones/joints: Unremarkable. XR/XR chest 1V portable [id number] IMPRESSION: No acute disease.
[2023-04-13] MEDS: enoxaparin 30 mg/0.3 mL Syringe SUBCUT (09:00)
[2023-04-13] MEDS: calcium carb-vit d 600mg/400unit 1 Tablet 1 EACH PO ×2 (09:00→17:41)
[2023-04-13] MEDS: aspirin 81 mg EC Tablet PO (09:00)
[2023-04-13] MEDS: iron polysaccharide complex 150 mg Capsule PO ×2 (09:00→17:42)
[2023-04-13] MEDS: docusate sodium 100 mg Capsule PO ×2 (09:00→17:39)
[2023-04-13] MEDS: multivitamin therapeutic Tablet 1 TAB PO (09:00)
[2023-04-13] MEDS: amiodarone 200 mg Tablet PO (09:00)
[2023-04-13] MEDS: pantoprazole DR 40 mg Tablet PO (09:00)
[2023-04-13 10:43] LABS: Troponin(5th) Baseline 93 ng/L (0-10)
--- NOTE | 2023-04-13 10:46 | ECG_ITS ---
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 Measurements Intervals [place] Rate: 125 P: 0 LA: 0 QRS: -15 QRSD: 86 T: 5 QT: 332 QTc: 480 Interpretive Statements ATRIAL FIBRILLATION WITH RAPID VENTRICULAR RESPONSE POSSIBLE ANTERIOR MYOCARDIAL INFARCTION , PROBABLY OLD [30 ms Q WAVE IN V3/V4, OR R < 0.2 mV IN V4] INFERIOR MYOCARDIAL INFARCTION , PROBABLY OLD [40+ ms Q WAVE AND/OR ST/T ABNORMALITY IN II/aVF] Compared to ECG 04/13/2023 09:24:30 No significant changes Electronically Signed On 04-15-2023 10:54:58 DRY MIXER by Piero Ro M.D. [email or web address].[id number]
[2023-04-13 10:54] LABS: Cortisol Random 13.87 ug/dL (2.47-19.5); NT Pro B Type Natriuretic Pept 3017 pg/mL (0-450); Procalcitonin 0.46 ng/mL (0-0.5)
[2023-04-13 11:05] LABS: C Reactive Protein 83.2 mg/L (0.0-4.9)
[2023-04-13 12:56] LABS: Troponin 5 2HR 94.43 ng/L (0-10); Troponin 5 2HR Delta 1.43 ABS# (0-10)
[2023-04-13] MEDS: cefTRIAXone 1,000 MG in sodium chloride 0.9% (plus) 50 ML 100 MG IV (14:50)
[2023-04-13] MEDS: amiodarone 150 MG/100 ML PREMIX 400 MG IV (14:59)
--- NOTE | 2023-04-13 15:27 | ECG_ITS ---
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 Measurements Intervals [place] Rate: 100 P: 0 CA: 0 QRS: 1 QRSD: 94 T: 29 QT: 346 QTc: 448 Interpretive Statements ATRIAL FIBRILLATION WITH RAPID VENTRICULAR RESPONSE Compared to ECG 04/13/2023 11:23:34 Myocardial infarct finding no longer present Electronically Signed On 04-15-2023 10:54:37 HOSPITAL SUPERINTENDENT by Piero Ro M.D. [id number]
--- NOTE | 2023-04-13 15:29 | P.PN_ITS ---
Subjective 2 Subjective: Patient was examined this morning, she is alert to person, not to place, not to time, she does follow commands, son is at bedside, she continues to have orthostatic hypotension, receiving fluids, she has no complaints, later on in the afternoon patient was developing A-fib with RVR, heart rates in the 140s, will moved down to see ICU for amiodarone drip and amiodarone bolus, seen moving down to CSU, son is at bedside, discussed with staff, that we need to get the heart rate under control, she will get an amiodarone bolus with amiodarone drip to get the heart rate under control I felt unsafe giving her this medication on the MedSurg as her blood pressures have been soft she will need close monitoring, will order serial troponins, serial EKGs Vitals/I&O/Wt Last Vital Signs Temp 97.3 F L 04/13/23 11:53 Pulse 122 H 04/13/23 11:53 Resp 18 04/13/23 11:53 BP 104/60 04/13/23 11:53 Pulse Ox 95 04/13/23 11:53 O2 Del Method Room Air 04/13/23 11:53 04/13/23 04/13/23 04/13/23 06:59 14:59 22:59 Intake Total 520 / 2388.75 960 / 960 Balance 520 / 2388.75 960 / 960 Weight last 48 hrs Weight 60.781 kg Weight 60.781 kg Physical Exam 2 Const: COMMON NORMALS: no acute distress Resp: COMMON NORMALS: normal respiratory effort, No retractions, No use of accessory muscles and clear to auscultation bilaterally AUSCULTATION: clear to auscultation bilaterally Cardio: COMMON NORMALS: regular rhythm, S1 normal heart sound present and S2 normal heart sound present RATE: tachycardic RHYTHM: regular rhythm H EART SOUNDS: S1 normal heart sound present and S2 normal heart sound present GI: COMMON NORMALS: Normal to inspection, nondistended, normoactive bowel sounds present and non-tender Extremity: COMMON NORMALS: no pedal edema Psych: COMMON NORMALS: mental status grossly normal Urinary Catheter Management: Johnson: Cath Placed During This Visit: yes, but has since been removed by the nurse Reason for Continuing Indwelling Catheter: Decision to DC Catheter Urinary Catheter Date of Insertion: 04/10/23 Urinary Catheter Time of Insertion: 10:40 Date Urinary Catheter Removed: 04/11/23 Time Urinary Catheter Discontinued: 18:14 Data 04/13/23 04:54 04/13/23 04:54 Micro: Microbiology 04/10/23 10:50 Urine Culture - Final Urine,Clean Catch Escherichia coli A&P Assessment and plan (1) Atrial fibrillation with RVR: (2) Cystitis: (3) Orthostatic hypotension: (4) Low blood pressure: Plan Right hip fracture ?status post surgical intervention, ? Continue Eliquis for DVT prophylaxis UTI ? Continue Rocephin, Orthostatic hypotension, ? Hold off of fluids due to elevated BNP, continue to monitor closely? A-fib with RVR, ? Amiodarone bolus started by amiodarone drip ?Eliquis 2.5 mg twice daily Normal left ventricular size and systolic function, EF 60 %. Mild left ventricular hypertrophy. Grade III/IV diastolic dysfunction (restrictive filling pattern), severely elevated filling pressures. Mildly increased left atrial size. Severe low gradient aortic valve stenosis, mean gradient 22.4 mmHg, BERNBAE 0.72 cm squared. Peak velocity of 3.4 m/s with a peak gradient of 46 mmHg. Moderate aortic valve regurgitation. Moderate aortic valve regurgitation. Moderate aortic valve calcification. Mild tricuspid and pulmonic valve regurgitation. Estimated pulmonary artery peak systolic pressure 25 mmHg There is no pericardial effusion. There are no intracardiac masses. No similar previous studies are available for comparison Aortic stenosis -Will monitor closely ? Could be component of orthostatic hypotension, shortness of breath, Spoke to patient, spoke to patient's son, spoke to nursing staff Attestations 2 Medical Necessity Statement*: Patient requires hospitalization for A-fib with RVR, requiring CSU admission, amiodarone bolus, then amiodarone drip UTI, soft blood pressures Diagnoses Atrial fibrillation with RVR I48.91 Cystitis N30.90 Orthostatic hypotension I95.1 Low blood pressure I95.9
[2023-04-13 16:54] LABS: Troponin 5 6HR 88.41 ng/L (0-10)
[2023-04-13 16:56] LABS: Troponin 5 6HR Delta -4.59 ng/L (0-12)
[2023-04-13] MEDS: atorvastatin 40 mg Tablet PO (17:41)
[2023-04-13] MEDS: TRAMadol 50 mg Tablet PO ×2 (17:41→22:42)
[2023-04-13] MEDS: apixaban 5 mg Tablet 2.5 MG PO (20:59)
[2023-04-14] VITALS (54 sets, daily range): BP systolic 96–126; BP diastolic 50–56; PULSE 52–87; RESP 9–32; TEMP 36.5; O2SAT 94–100
[2023-04-14 04:17] LABS: Basophils % 0.3 %; Eosinophils % 0.4 %; Hematocrit 26.1 % (36-47); Lymphocytes # 1.5 10^3/uL (0.8-4.8); Lymphocytes % 15.2 %; Mean Corpuscular HGB Conc 32.2 g/dL (30-55); Mean Corpuscular Hemoglobin 28.4 pg (27-33); Mean Corpuscular Volume 88.2 fl (85-98); Mean Platelet Volume 10.8 fL (7.4-10.4); Monocytes # 1.1 10^3/uL (0.2-0.9); Monocytes % 10.8 %; Neutrophils # 7.09 10^3/uL (1.8-7.7); Neutrophils % 72.9 %; Nucleated Red Blood Cells % 0 %; Platelet Count 181 10^3/cmm (157-399); Red Blood Count 2.96 10^6/uL (3.85-5.65); Red Cell Distribution Width 19.1 % (12.1-15.1); White Blood Count 9.73 10^3/uL (3.29-11.43)
[2023-04-14 04:51] LABS: Alanine Aminotransferase < 5 U/L (0-33); Albumin Level 2.5 g/dL (3.5-5.2); Alkaline Phosphatase 94 U/L (35-105); Anion Gap 11.7 (5-19); Aspartate Amino Transferase 10 U/L (0-32); Blood Urea Nitrogen 14 mg/dL (8-23); Calcium 7.5 mg/dL (8.5-10.5); Carbon Dioxide 20 mmol/L (22-29); Chloride 103 mmol/L (98-107); Globulin 2.1 g/dL (1.3-4.6); Glucose 113 mg/dL (65-115); Osmolality Calculated 273 mOsm/kg (285-295); Phosphorus 2.3 mg/dL (2.5-4.5); Potassium 3.7 mmol/L (3.5-5.1); Sodium 131 mmol/L (136-145); Total Bilirubin 0.5 mg/dL (0.15-1.2); Total Protein 4.6 g/dL (6.6-8.7)
[2023-04-14] MEDS: aspirin 81 mg EC Tablet PO (09:06)
[2023-04-14] MEDS: apixaban 5 mg Tablet 2.5 MG PO (09:06)
[2023-04-14] MEDS: multivitamin therapeutic Tablet 1 TAB PO (09:06)
[2023-04-14] MEDS: pantoprazole DR 40 mg Tablet PO (09:06)
[2023-04-14] MEDS: iron polysaccharide complex 150 mg Capsule PO (09:06)
[2023-04-14] MEDS: calcium carb-vit d 600mg/400unit 1 Tablet 1 EACH PO (09:07)
[2023-04-14] MEDS: amiodarone 200 mg Tablet 400 MG PO (09:07)
[2023-04-14] MEDS: docusate sodium 100 mg Capsule PO (09:09)
[2023-04-14] MEDS: TRAMadol 50 mg Tablet PO (11:12)
== END 2023-04-14 13:10 | disposition home health service (06) | DRG 481 ==
LOC: ER 10:29 → MEDSURG 11:57 → CSU 04-13 14:42
PROVIDERS: Student in an Organized Health Care Education/Training Program; Admitting Provider Internal Medicine; Emergency Provider Emergency Medicine; PCP Nurse Practitioner Family; Visit Provider Family Medicine
PROC: 0QH636Z Insertion of Intramedullary Internal Fixation Device into Right Upper Femur, Percutaneous Approach (ICD-10-PCS; CPT 27245; principal; 2023-04-10 16:00)
DX: S72.141A Displaced intertrochanteric fracture of right femur, initial encounter for closed fracture (principal); N39.0 Urinary tract infection, site not specified; W18.30XA Fall on same level, unspecified, initial encounter; I48.91 Unspecified atrial fibrillation; E78.5 Hyperlipidemia, unspecified; F03.C0 Unspecified dementia, severe, without behavioral disturbance, psychotic disturbance, mood disturbance, and anxiety; I35.0 Nonrheumatic aortic (valve) stenosis; F80.2 Mixed receptive-expressive language disorder; I73.9 Peripheral vascular disease, unspecified; I25.10 Atherosclerotic heart disease of native coronary artery without angina pectoris; I95.1 Orthostatic hypotension; E86.0 Dehydration; N18.9 Chronic kidney disease, unspecified; Z87.440 Personal history of urinary (tract) infections; Z86.16 Personal history of COVID-19
CPT/HCPCS: 36415; 36430; 51702; 70450; 71045; 73502; 73552; 73562; 76000; 80048; 80053; 81001; 82533; 83605; 83735; 83880; 84100; 84145; 84484; 85014; 85018; 85025; 86140; 86850; 86900; 86920; 87077; 87086; 87186; 93005; 96372; 97110; 97116; 97162; 97167; 97530; 99284; C1713; J0131; J0283; J0690; J0696; J1170; J1650; J2270; J2371; J2704; J3010; J7030; J7050; P9016

== ENCOUNTER → 2023-04-26 09:48 | Outpatient (BNVA) | payer MEDICARE, MEDICAID, SELFPAY | PROVIDERS: PCP Nurse Practitioner Family; Visit Provider Physician Assistant | DX: Z98.890 Other specified postprocedural states; S72.141D Displaced intertrochanteric fracture of right femur, subsequent encounter for closed fracture with routine healing; X58.XXXD Exposure to other specified factors, subsequent encounter | CPT/HCPCS: 73502; 99024 ==

== ENCOUNTER 2023-07-04 12:59 | Emergency (ER) | payer MEDICARE, MEDICAID, SELFPAY ==
[2023-07-04 12:59] VITALS: BMI 26.4
[2023-07-04 13:04] VITALS: BP 128/64; PULSE 54; RESP 16; TEMP 36.9; O2SAT 100
--- NOTE | 2023-07-04 13:16 | PC.PHAR ---
PT IS [facility] #[phone]. THEY ARE FAXING MED LIST 07/04/23 1:17PM
[2023-07-04 13:29] VITALS: PULSE 54; O2SAT 98
--- NOTE | 2023-07-04 13:33 | W.ED.AMS ---
HPI - Altered Mental Status General: Chief Complaint: Altered Mental Status Stated Complaint: PAIN Time Seen by Provider: 07/04/23 13:04 Source: EMS Mode of arrival: EMS Limitations: altered mental status History of Present Illness: 77-year-old female who has a history of severe dementia she is on hospice for her severe dementia hospice was concerned she seemed little more confused today than typical and acted like her left shoulder hurt. Patient here is in no distress she is quite confused not really able answer any questions but does have severe dementia PFSH ED PFSH: Medical History Hip fracture, right Aortic stenosis Hx of coronary angiogram Intermittent atrial fibrillation Arrhythmia Syncope Wernicke's receptive aphasia Peripheral arterial disease Atherosclerosis of coronary artery of [place] heart without angina pectoris B12 deficiency Dementia Surgical History Hx of hysterectomy Hx of carpal tunnel repair Family History Mother Alzheimer disease Diabetes Brother No problems noted. Social History Smoking and tobacco/nicotine status: never used tobacco/nicotine Alcohol intake: never Substance/Drug Use: unknown Physical Exam Const: COMMON NORMALS: negative for patient oriented x3 HENMT: COMMON NORMALS: normocephalic and atraumatic HEAD & SCALP: normocephalic and atraumatic Eye: COMMON NORMALS: Equal, round and reactive pupils present and EOMs intact bilaterally PUPIL: Yes Equal, round and reactive pupils present Neck/C-Spine: COMMON NORMALS: full ROM and supple Chest: COMMONS NORMALS: normal inspection of the chest and normal palpation of entire chest wall Resp: COMMON NORMALS: normal respiratory effort, No retractions, No use of accessory muscles and clear to auscultation bilaterally AUSCULTATION: clear to auscultation bilaterally Cardio: COMMON NORMALS: regular rate, regular rhythm and No murmurs present (Cardio) RATE: regular rate RHYTHM: regular rhythm GI: COMMON NORMALS: Normal to inspection, nondistended, normoactive bowel sounds present, Soft to palpation, non-tender and no masses PALPATION: Yes Soft to palpation Extremity: COMMON NORMALS: normal to inspection and full ROM Neuro: COMMON NORMALS: moves all extremities and no focal motor deficits; negative for patient oriented x3 Psych: COMMON NORMALS: cooperative; negative for mental status grossly normal Skin: COMMON NORMALS: no rashes or lesions noted and no wounds GENERAL SKIN EXAM: no rashes or lesions noted Course Vital Signs: Vital signs: Vital Signs Temperature 98.5 F 07/04/23 13:04 Pulse Rate 54 L 07/04/23 14:04 Respiratory Rate 16 07/04/23 13:04 Blood Pressure 128/64 07/04/23 13:04 Pulse Oximetry 98 07/04/23 14:04 Oxygen Delivery Me thod Room Air 07/04/23 14:04 MDM - Altered Mental Status Medical Decision Making Patient presented here with some confusion she is demented on hospice for dementia she is at her baseline here EKG is normal her vitals here been normal she is stable for discharge back to home on hospice Medical Records I reviewed the patient's medical records. No radiology studies performed this visit Discharge Plan Discharge Patient Disposition: Home Clinical Impression: Dementia Condition: Stable Prescriptions: No Action rosuvastatin [Crestor] 20 mg tablet 20 mg PO DAILY Qty: 90 5RF polysaccharide iron complex [Ferrex 150] 150 mg iron Capsule 150 mg PO BIDWM Qty: 60 0RF tramadol 50 mg Tablet 50 mg PO Q4H PRN (Reason: Mild Pain) Qty: 20 0RF Eliquis 2.5 mg tablet 2.5 mg PO BID Qty: 60 0RF quetiapine 25 mg tablet 25 mg PO BEDTIME ondansetron HCl 4 mg Tablet 4 mg PO Q8H PRN (Reason: Nausea) hydroxyzine HCl 25 mg Tablet 25 mg PO TID PRN (Reason: Anxiety) polyethylene glycol 3350 17 gram/dose powder See Rx Instructions .ROUTE .COMPLEX Rx Instructions: MIX 17 GRAMS IN 8 OUNCES OF WATER FOR CONSTIPATION ONCE DAILY Pacerone 200 mg tablet 200 mg PO BID Discharge Orders: Discharge ED (Routine); Ordered 07/04/23 Ordered By: Liza Gibson Discharge Diet: Advance as tolerated Discharge Activity: Resume usual activity Patient Instructions: Dementia (ED) Coding Level of Care Code ED System Support Analyst for Marge Bhardwaj
--- NOTE | 2023-07-04 13:48 | ECG_ITS ---
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 Measurements Intervals [place] Rate: 53 P: 97 IA: 186 QRS: 27 QRSD: 93 T: 30 QT: 481 QTc: 452 Interpretive Statements SINUS BRADYCARDIA POSSIBLE RIGHT VENTRICULAR CONDUCTION DELAY [RSR (QR) IN V1/V2] PROLONGED QT INTERVAL Compared to ECG 04/13/2023 15:27:57 Prolonged QT interval now present Atrial fibrillation no longer present Electronically Signed On 07-04-2023 16:13:40 CDT by Piero Ro M.D. [id number]
[2023-07-04 14:04] VITALS: PULSE 54; O2SAT 98
== END 2023-07-04 14:24 | disposition home or self-care (01) ==
PROVIDERS: Emergency Provider Emergency Medicine
DX: F03.C0 Unspecified dementia, severe, without behavioral disturbance, psychotic disturbance, mood disturbance, and anxiety (principal); Z79.01 Long term (current) use of anticoagulants; I25.10 Atherosclerotic heart disease of native coronary artery without angina pectoris
CPT/HCPCS: 93005; 99283